=== PATIENT | male | born 1975 | race Caucasian/White ===

== ENCOUNTER 2023-08-21 14:35 | Observation (INO) | payer OTHER, SELFPAY ==
[2023-08-21] VITALS (18 sets, daily range): BP systolic 97–130; BP diastolic 59–87; PULSE 55–67; RESP 12–21; TEMP 36.8–37.2; O2SAT 93–100; BMI 33.4
--- NOTE | 2023-08-21 15:05 | ED.DIZZY1 ---
HPI - Dizziness General Chief Complaint: Dizziness Stated Complaint: DIZZINESS Time Seen by Provider: 08/21/23 14:42 Source: patient and family Mode of arrival: Wheelchair Limitations: no limitations History of Present Illness HPI Narrative: 47-year-old male presents to the emergency department with with complaint of dizziness. Onset at 8 PM last night. Describes as a feeling as though he were on a boat, moving, somewhat spinning. History of dizziness in the past for which she takes meclizine as needed. States, despite taking his meclizine the symptoms have persisted and feel somewhat worse. Has had associated nausea. Denies headache Quality:?spinning Severity:?moderate Timing:?as above, constant Context: Normal setting and activity? Modifying factors:?worse with changes in position Associated symptoms: nausea Related Data Home Medications Medication Instructions Recorded Confirmed meclizine 25 mg tablet 25 mg PO TID PRN dizziness 08/21/23 08/21/23 Previous Rx's Medication Instructions Recorded ciprofloxacin HCl 500 mg tablet 500 mg PO Q12H #20 tabs 08/22/23 (Cipro) meclizine 25 mg tablet 25 mg PO QID PRN dizziness #30 tabs 08/22/23 prednisone 10 mg tablet 50 mg (5 x 10 mg) PO DAILY #47 tabs 08/22/23 Allergies Allergy/AdvReac Type Severity Reaction Status Date / Time hydrocodone [From Vicodin] Allergy Severe Difficulty Verified 08/21/23 18:37 Breathing Iodinated Contrast Media Allergy Severe Anaphylaxis Verified 08/21/23 14:44 oxycodone [From Percocet] Allergy Severe Difficulty Verified 08/21/23 18:37 Breathing Review of Systems ROS Narrative CONST: Denies fever, chills HENT: Denies congestion, sore throat EYES: Denies eye redness, visual disturbance RESP: Denies cough, shortness of breath CV: Denies chest pain, palpitations GI: + nausea. Denies abd pain, vomiting : Denies dysuria, flank pain MS: Denies back pain, myalgias SKIN: Denies color change, rash NEURO: + dizziness. Denies facial asymmetry, headaches, light-headedness, numbness, seizures, syncope, tremors, weakness PSYCHIATRIC: Denies confusion, agitation PFSH [facility] Medical History (Updated 08/21/23 @ 18:38 by Yumiko Gar) CPAP (continuous positive airway pressure) dependence ?Z99.89 - Dependence on other enabling machines and devices (ICD-10) Family History (Updated 08/21/23 @ 18:39 by Yumiko Gar) Mother Family history of CHF (congestive heart failure) Family history of diabetes mellitus Family history of hypertension Father Family history of diabetes mellitus Social History (Updated 08/21/23 @ 18:40 by Yumiko Gar) Within the past year, how often did you have a drink containing alcohol: monthly or less Within the past year, how often did you have six or more drinks on one occasion: never Smoking status: Never smoker Non-prescribed substance use: denies use Previous occupational history: [employer] Highest level of school completed/degree received: high school graduate Little interest or pleasure in doing things: not at all Feeling down, depressed, or hopeless: not at all Exam Narrative Exam Narrative: Vital signs reviewed Nurses notes noted CONST: Nontoxic, well appearing, well nourished, in no distress.? No diaphoresis.?? HENT: normocephalic, atraumatic, moist mucous membrane, no abnormalities of the nose noted, hearing normal, no facial droop EYES: PERRL, EOMI.? Diffucult to assess nystagmus as when patient opens eyes, they are constantly moving in all directions. Normal appearing conjunctiva, no apparent discharge bilat NECK: normal appearance CV: normal rate, regular rhythm, no murmur RESP: normal effort, speaking in complete sentences. Lung sounds clear and equal bilat.? No wheezes, rales, rhonchi SKIN: no pallor NEURO: A&Ox 3, GCS = 15, no sensory, motor deficits.? CN normal as tested. NIH = 0.? Senior Quality Analyst, push, pull are strong and equal bilaterally. PSYCH: normal mood, affect.? Normal speech.? Memory intact Constitutional Vital Signs, click to edit/add: Last Vital Signs Temp 97.7 F 08/22/23 04:19 Pulse 93 H 08/22/23 09:59 Resp 18 08/22/23 04:19 BP 115/65 08/22/23 04:19 Pulse Ox 91 L 08/22/23 04:19 O2 Del Method Room Air 08/22/23 04:19 Course Reevaluation(s) Reevaluation #1: Nursing reports patient no better after treatment. New medications and CT ordered. Time: 16:34 Reevaluation #2: Dizziness still present. Patient agreeable with trying benzodiazepine. 1 mg of Ativan ordered. Time: 17:33 Reevaluation #3: Though somewhat improved, patient still feels very vertiginous, like I am on a boat, and feels as though if he were to be discharged to home, he would have to come right back. Discussed with patient and results, plan, and disposition. They are agreeable with plan. Time: 18:01 Consultations Consultation #1: Discussed with Dr. Stern who is agreeable with admission Time: 18:01 Vital Signs Vital signs: Vital Signs Temperature 98.9 F 08/21/23 14:40 Pulse Rate 67 08/21/23 14:40 Respiratory Rate 20 08/21/23 14:40 Blood Pressure 130/82 08/21/23 14:40 Pulse Oximetry 98 08/21/23 14:40 Oxygen Delivery Method Room Air 08/21/23 14:40 Temperature 97.7 F 08/22/23 04:19 Pulse Rate 93 H 08/22/23 09:59 Respiratory Rate 18 08/22/23 04:19 Blood Pressure 115/65 08/22/23 04:19 Pulse Oximetry 91 L 08/22/23 04:19 Oxygen Delivery Method Room Air 08/22/23 04:19 MDM - Dizziness MDM Narrative Medical decision making narrative: This is a pleasant 47-year-old male present to the emergency department with with complaint of dizziness. Onset around 8 PM last night. Chronic history of vertigo. Despite taking meclizine, not having improvement today. States dizziness worse than other incidences. On arrival, afebrile, vital signs stable. On exam nontoxic, well-appearing patient who appears somewhat uncomfortable. He is moving around randomly coinciding with the dizziness he is experiencing, but they external ocular movements are intact. Cranial nerves grossly intact. No focal weakness. Heart regular rate and rhythm. Lung sounds clear and equal bilaterally. Discussed with patient treatment options. Patient was hesitant to try Valium because he has a sensitivity to narcotic medicines. Initial course included IV fluids, meclizine, and Zofran. Reassessments noted as above. Labs revealed no leukocytosis, anemia, electrolyte imbalance, renal impairment. LFTs within normal limits. Urinalysis unremarkable. CT head imaging, per radiologist reveals no acute findings. Benign positional vertigo favored based on history and physical exam, past medical history of this. Central lesion less likely based on history and physical exam. CT scan did not show concerning findings. Despite multiple medication modalities, patient remained dizzy. Patient does not feel safe with going home. Plan: Patient will be admitted to the hospital for continued IV therapy, monitoring. Patient was discussed with his primary care provider who is agreeable with admission. Patient otherwise remained stable. Medical Records Attestation: I reviewed the patient's medical records. Lab Data Attestation: I reviewed the patient's lab results. Labs: Lab Results 08/21/23 08/21/23 Range/Units 15:16 17:34 WBC 7.2 (4.0-11.0) 10^3/uL RBC 4.90 (4.70-6.10) 10^6/uL Hgb 14.4 (14.0-18.0) g/dL Hct 44.5 (42.0-54.0) % MCV 90.8 (80.0-94.0) fL MCH 29.4 (25.9-34.0) pg MCHC 32.4 (29.9-35.2) g/dL RDW 12.6 (11.0-15.0) % Plt Count 224 (150-450) 10^3/uL MPV 9.7 (9.5-13.5) fL Neut % (Auto) 50.2 (43.0-75.0) % Lymph % (Auto) 35.9 (20.5-60.0) % [place] % (Auto) 9.1 (1.7-12.0) % Eos % (Auto) 3.9 (0.9-7.0) % Baso % (Auto) 0.8 (0.2-2.0) % Neut # (Auto) 3.6 (1.4-6.5) 10^3/uL Lymph # (Auto) 2.6 (1.2-3.8) 10^3/uL [place] # (Auto) 0.7 (0.3-0.8) 10^3/uL Eos # (Auto) 0.3 (0.0-0.7) 10^3/uL Baso # (Auto) 0.1 (0.0-0.1) 10^3/uL Abs Immat Gran (auto) 0.01 (0.00-0.03) 10^3/uL Imm/Tot Granulo (auto) 0.1 (0.0-0.5) % Sodium 141 (136-145) mmol/L Potassium 3.9 (3.5-5.1) mmol/L Chloride 105 (98-107) mmol/L Carbon Dioxide 27.7 (21.0-32.0) mmol/L Anion Gap 12.2 BUN 14.0 (7.0-18.0) mg/dL Creatinine 1.13 (0.70-1.30) mg/dL Est GFR ( Amer) >60 (>=60) Est GFR (Non-Af Amer) >60 (>=60) BUN/Creatinine Ratio 12.4 Glucose 89 (74-106) mg/dL Calcium 9.2 (8.5-10.1) mg/dL Total Bilirubin 0.9 (0.2-1.0) mg/dL AST 30 (15-37) U/L ALT 61 (16-63) U/L Alkaline Phosphatase 63 (46-116) U/L Total Protein 7.8 (6.4-8.2) g/dL Albumin 3.8 (3.4-5.0) g/dL Globulin 4.0 g/dL Albumin/Globulin Ratio 0.9 Urine Color Lt. yellow (YELLOW) Urine Clarity Clear (CLEAR) Urine pH 6.0 (5.0-9.0) Ur Specific [place] 1.010 (1.005-1.025) Urine Protein Negative (NEG/TRACE) mg/dL Urine Glucose (UA) Negative (NEGATIVE) mg/dL Urine Ketones Negative (NEGATIVE) mg/dL Urine Occult Blood Negative (NEGATIVE) Urine Nitrite Negative (NEGATIVE) Urine Bilirubin Negative (NEGATIVE) Urine Urobilinogen 0.2 (0.2-1.0) EU/dL Ur Leukocyte Esterase Negative (NEGATIVE) Imaging Data CT scan - head: Radiologist's impression: ITS Impressions Head CT 08/21/23 16:17 IMPRESSION: No acute intracranial abnormalities. Electronically authenticated by: YVONNE LEVY Date: 08/21/2023 17:00 ECG Data Attestation: I personally reviewed and interpreted this ECG as follows: (EKG performed at 1442 hrs. reveals sinus rhythm at 54 bpm. Normal axis. No ST elevation. No other acute changes noted) Discharge Plan Discharge Chief Complaint: Dizziness Clinical Impression: Vertigo Nausea & vomiting Qualifiers: Vomiting type: unspecified Qualified Code(s): R11.2 - Nausea with vomiting, unspecified Patient Disposition: Admitted as Observation Time of Disposition Decision: 18:00 Condition: Good Discharge Date/Time: 08/21/23 18:18
[2023-08-21] MEDS: MECLIZINE HCL 12.5 MG TABLET 50 MG PO (15:12)
[2023-08-21] MEDS: ONDANSETRON PF 4 MG/2 ML VIAL IV (15:12)
[2023-08-21] MEDS: 0.9 % SODIUM CHLORIDE 1,000 ML 999 ML IV (15:12)
[2023-08-21 15:30] LABS: Basophils Absolute Auto 0.1 10^3/uL (0.0-0.1); Basophils Percent Auto 0.8 % (0.2-2.0); Eosinophils Absolute Auto 0.3 10^3/uL (0.0-0.7); Eosinophils Percent Auto 3.9 % (0.9-7.0); Hematocrit 44.5 % (42.0-54.0); Hemoglobin 14.4 g/dL (14.0-18.0); Immature Granulocytes Abs Auto 0.01 10^3/uL (0.00-0.03); Immature Granulocytes Pct Auto 0.1 % (0.0-0.5); Lymphocytes Absolute Auto 2.6 10^3/uL (1.2-3.8); Lymphocytes Percent Auto 35.9 % (20.5-60.0); Mean Corpuscular HGB Conc 32.4 g/dL (29.9-35.2); Mean Corpuscular Hemoglobin 29.4 pg (25.9-34.0); Mean Corpuscular Volume 90.8 fL (80.0-94.0); Mean Platelet Volume 9.7 fL (9.5-13.5); Monocytes Absolute Auto 0.7 10^3/uL (0.3-0.8); Monocytes Percent Auto 9.1 % (1.7-12.0); Neutrophils Absolute Auto 3.6 10^3/uL (1.4-6.5); Neutrophils Percent Auto 50.2 % (43.0-75.0); Platelet Count 224 10^3/uL (150-450); Red Cell Distribution Width 12.6 % (11.0-15.0); White Blood Count 7.2 10^3/uL (4.0-11.0)
[2023-08-21 15:53] LABS: Alanine Aminotransferase 61 U/L (16-63); Albumin Globulin Ratio 0.9; Albumin Level 3.8 g/dL (3.4-5.0); Alkaline Phosphatase 63 U/L (46-116); Anion Gap 12.2; Aspartate Amino Transferase 30 U/L (15-37); BUN Creatinine Ratio 12.4; Bilirubin Total 0.9 mg/dL (0.2-1.0); Calcium 9.2 mg/dL (8.5-10.1); Carbon Dioxide 27.7 mmol/L (21.0-32.0); Chloride 105 mmol/L (98-107); Estimated GFR (African America >60 (>=60); Estimated GFR (Non-African Ame >60 (>=60); Glucose 89 mg/dL (74-106); Potassium 3.9 mmol/L (3.5-5.1); Sodium 141 mmol/L (136-145); Total Protein 7.8 g/dL (6.4-8.2)
--- NOTE | 2023-08-21 16:17 | CT_ITS ---
The [address] [address] Patient Name: ISABELLA BOWLING MRN: [id number] date: 1975 Sex: M Assigned Patient Location: ER Current Patient Location: ER Accession/Order Number: [id number] Exam Date: 08/21/2023 16:44 Report Date: 08/21/2023 17:00 At the request of: NIELS BOWSER Procedure: CT head/brain wo con EXAM: CT scan of the head without contrast. Dose reduction technique used: Automated exposure control and/or adjustment of the mA and/or kV according to patient size and/or use of iterative reconstruction technique. REASON FOR EXAM: dizziness COMPARISON: None FINDINGS: No intracranial hemorrhage, mass effect, midline shift, fractures or evidence of acute ischemic infarct. No hydrocephalus. Paranasal sinuses and mastoid air cells are clear. Normal variant prominent cisterna magna. Remainder unremarkable. CT/CT head/brain wo con IMPRESSION: No acute intracranial abnormalities. Electronically authenticated by: YVONNE LEVY Date: 08/21/2023 17:00
[2023-08-21] MEDS: DIPHENHYDRAMINE HCL 50 MG/ML (1ML) VIAL 25 MG IV (16:34)
[2023-08-21] MEDS: MECLIZINE HCL 12.5 MG TABLET 25 MG PO ×2 (16:34→21:55)
[2023-08-21] MEDS: METHYLPREDNISOLONE SOD SUCC PF 125 MG/2 ML VIAL IVP ×2 (16:34→21:54)
[2023-08-21] MEDS: LORAZEPAM 2 MG/ML 1 ML VIAL 1 MG IV (17:33)
[2023-08-21 17:51] LABS: Bilirubin Urine NEGATIVE (NEGATIVE); Blood Urine NEGATIVE (NEGATIVE); Clarity Urine CLEAR (CLEAR); Color Urine LT. YELLOW (YELLOW); Glucose Urine UA NEGATIVE (NEGATIVE); Ketones Urine NEGATIVE (NEGATIVE); Leukocyte Esterase Urine NEGATIVE (NEGATIVE); Nitrite Urine NEGATIVE (NEGATIVE); Protein Urine NEGATIVE (NEG/TRACE); Urine Microscopic Indicated NO; Urobilinogen Urine 0.2 EU/dL (0.2-1.0)
--- NOTE | 2023-08-21 18:44 | P.HP_ITS ---
H&P: HPI History of Present Illness Chief complaint: DIZZINESS VERTIGO Narrative: Patient had acute onset last night of increasing nausea vomiting and spinning sensation consistent with vertigo. In ER patient was given several different medications none of which should help to break his cycle. Soon as he opens his eyes he has horizontal nystagmus. With unable to break symptoms in ER patient will be admitted. Review of Systems ROS Status of ROS 10 or more systems reviewed and unremark able except as noted in history and below PFSH PFSH Medical History (Updated 08/21/23 @ 18:38 by Yumiko Gar) CPAP (continuous positive airway pressure) dependence ?Z99.89 - Dependence on other enabling machines and devices (ICD-10) Family History (Updated 08/21/23 @ 18:39 by Yumiko Gar) Mother Family history of CHF (congestive heart failure) Family history of diabetes mellitus Family history of hypertension Father Family history of diabetes mellitus Social History (Updated 08/21/23 @ 18:40 by Yumiko Gar) Within the past year, how often did you have a drink containing alcohol: monthly or less Within the past year, how often did you have six or more drinks on one occasion: never Smoking status: Never smoker Non-prescribed substance use: denies use Previous occupational history: the medical center Highest level of school completed/degree received: high school graduate Little interest or pleasure in doing things: not at all Feeling down, depressed, or hopeless: not at all Meds Home Medications and Allergies Home Medications Medication Instructions Recorded Confirmed Type meclizine 25 mg tablet 25 mg PO TID PRN dizziness 08/21/23 08/21/23 History Allergies Allergy/AdvReac Type Severity Reaction Status Date / Time hydrocodone [From Vicodin] Allergy Severe Difficulty Verified 08/21/23 18:37 Breathing Iodinated Contrast Media Allergy Severe Anaphylaxis Verified 08/21/23 14:44 oxycodone [From Percocet] Allergy Severe Difficulty Verified 08/21/23 18:37 Breathing Exam Constitutional Vital Signs, click to edit/add: Last Vital Signs Temp 98.9 F 08/21/23 14:40 Pulse 59 L 08/21/23 16:20 Resp 19 08/21/23 16:20 BP 122/60 08/21/23 16:01 Pulse Ox 94 L 08/21/23 16:20 O2 Del Method Room Air 08/21/23 14:40 [facility] Common normals: normocephalic and head/scalp atraumatic Eye Other: Positive nystagmus on bilateral conjugate gaze Lymph Lymphatic: no lymphadenopathy noted Chest Common normals: inspection of chest normal Respiratory Common normals: normal respiratory effort and no retractions Cardio Common normals: regular rate and regular rhythm GI Common normals: Normal to inspection, nondistended, normoactive bowel sounds present Neuro Common normals: oriented x3, CN's II-XII intact bilaterally and moves all extremities Results Labs Labs: Short CBC 08/21/23 Range/Units 15:16 WBC 7.2 (4.0-11.0) 10^3/uL Hgb 14.4 (14.0-18.0) g/dL Hct 44.5 (42.0-54.0) % Plt Count 224 (150-450) 10^3/uL BMP 08/21/23 15:16 Sodium 141 Potassium 3.9 Chloride 105 Carbon Dioxide 27.7 BUN 14.0 Creatinine 1.13 Glucose 89 Calcium 9.2 Liver Function 08/21/23 Range/Units 15:16 Total Bilirubin 0.9 (0.2-1.0) mg/dL AST 30 (15-37) U/L ALT 61 (16-63) U/L Alkaline Phosphatase 63 (46-116) U/L Albumin 3.8 (3.4-5.0) g/dL Urine 08/21/23 Range/Units 17:34 Urine Color Lt. yellow (YELLOW) Urine Clarity Clear (CLEAR) Urine pH 6.0 (5.0-9.0) Ur Specific [place] 1.010 (1.005-1.025) Urine Protein Negative (NEG/TRACE) mg/dL Urine Glucose (UA) Negative (NEGATIVE) mg/dL Assessment and Plan Assessment and Plan (1) Nausea & vomiting: Qualifiers: Vomiting type: unspecified Qualified Code(s): R11.2 - Nausea with vomiting, unspecified (2) Vertigo: Plan Mild tachycardia secondary to vertigo with unrelenting symptoms despite multiple medications given in ER, Benadryl, Ativan, Phenergan, steroids. With lack of improvement he will be admitted, given IV fluids, other IV medication to include Reglan. He can get 1 more dose of meclizine, start antibiotics. Vestibular therapy with physical therapy in a.m. This patient initially in observation status. Likely discharge in a..
--- NOTE | 2023-08-21 19:19 | ECG_ITS ---
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
[2023-08-21] MEDS: 0.9 % SODIUM CHLORIDE 1,000 ML 125 ML IV (21:54)
[2023-08-21] MEDS: CIPROFLOXACIN IN 5 % DEXTROSE 400 MG/200 ML PIGGYBACK 200 MG IV (21:54)
[2023-08-21] MEDS: METOCLOPRAMIDE HCL 10 MG/2 ML VIAL IVP (21:55)
[2023-08-22] VITALS (8 sets, daily range): BP systolic 115; BP diastolic 65; PULSE 63–93; RESP 18; TEMP 36.5; O2SAT 91–95
[2023-08-22] MEDS: METOCLOPRAMIDE HCL 10 MG/2 ML VIAL IVP ×2 (03:57→09:35)
[2023-08-22] MEDS: MECLIZINE HCL 12.5 MG TABLET 25 MG PO ×2 (03:57→09:35)
[2023-08-22] MEDS: METHYLPREDNISOLONE SOD SUCC PF 125 MG/2 ML VIAL IVP ×2 (03:57→09:35)
[2023-08-22 04:52] LABS: Basophils Percent Auto 0.1 % (0.2-2.0); Hematocrit 45.3 % (42.0-54.0); Hemoglobin 14.4 g/dL (14.0-18.0); Immature Granulocytes Abs Auto 0.04 10^3/uL (0.00-0.03); Immature Granulocytes Pct Auto 0.3 % (0.0-0.5); Lymphocytes Absolute Auto 0.6 10^3/uL (1.2-3.8); Lymphocytes Percent Auto 3.8 % (20.5-60.0); Mean Corpuscular HGB Conc 31.8 g/dL (29.9-35.2); Mean Corpuscular Hemoglobin 29.3 pg (25.9-34.0); Mean Corpuscular Volume 92.1 fL (80.0-94.0); Mean Platelet Volume 10.5 fL (9.5-13.5); Monocytes Absolute Auto 0.4 10^3/uL (0.3-0.8); Monocytes Percent Auto 2.6 % (1.7-12.0); Neutrophils Absolute Auto 14.8 10^3/uL (1.4-6.5); Neutrophils Percent Auto 93.2 % (43.0-75.0); Platelet Count 218 10^3/uL (150-450); Red Blood Count 4.92 10^6/uL (4.70-6.10); Red Cell Distribution Width 12.4 % (11.0-15.0); White Blood Count 15.9 10^3/uL (4.0-11.0)
[2023-08-22 04:56] LABS: Anion Gap 12.8; BUN Creatinine Ratio 18.9; Calcium 8.8 mg/dL (8.5-10.1); Carbon Dioxide 24.8 mmol/L (21.0-32.0); Chloride 107 mmol/L (98-107); Estimated GFR (African America >60 (>=60); Estimated GFR (Non-African Ame >60 (>=60); Glucose 141 mg/dL (74-106); Potassium 4.6 mmol/L (3.5-5.1); Sodium 140 mmol/L (136-145)
[2023-08-22 05:01] LABS: Erythrocyte Sedimentation Rate 9 mm/hr (<=15)
[2023-08-22] MEDS: 0.9 % SODIUM CHLORIDE 1,000 ML 125 ML IV (06:03)
[2023-08-22] MEDS: CIPROFLOXACIN IN 5 % DEXTROSE 400 MG/200 ML PIGGYBACK 200 MG IV (09:35)
--- NOTE | 2023-08-22 09:36 | P.DS_ITS ---
DS: Providers Provider Date of admission: 08/21/23 18:18 Primary care physician: Roland Stern MD Consults: 08/21/23 18:25 Physical Therapy Eval and Treat Routine Reason for consultation: Eval and Treat vestibular tx Has provider been notified: No DS: Diagnosis Discharge Diagnosis (1) Nausea & vomiting: Qualifiers: Vomiting type: unspecified Qualified Code(s): R11.2 - Nausea with vomiting, unspecified (2) Vertigo: Plan Steroid-induced hyperglycemia Steroid-induced leukocytosis DS: Summary Hospital Course Hospital Course: Patient was admitted with intractable vertigo. Given multiple medications in the emergency room without effectiveness. He was given steroids overnight time. This did seem to improve his vertigo. Still has some symptoms in the morning but was at least able to open his eyes. Physical therapy worked with patient, and conversation with his later in the day he felt much improved and was discharged home in improving condition. Medications see list. Follow-up with me in the office as needed. Time Spent with Patient Time attestation: Total time spent providing and/or coordinating discharge services: Exam Constitutional Vital Signs, click to edit/add: Last Vital Signs Temp 97.7 F 08/22/23 04:19 Pulse 69 08/22/23 07:53 Resp 18 08/22/23 04:19 BP 115/65 08/22/23 04:19 Pulse Ox 91 L 08/22/23 04:19 O2 Del Method Room Air 08/22/23 04:19 DS: Data Data Completed and Pending Labs on day of discharge: Labs from last 24 hours 08/22/23 08/21/23 08/21/23 04:05 17:34 15:16 WBC 15.9 H 7.2 RBC 4.92 4.90 Hgb 14.4 14.4 Hct 45.3 44.5 MCV 92.1 90.8 MCH 29.3 29.4 MCHC 31.8 32.4 RDW 12.4 12.6 Plt Count 218 224 MPV 10.5 9.7 Neut % (Auto) 93.2 H 50.2 Lymph % (Auto) 3.8 L 35.9 [place] % (Auto) 2.6 9.1 Eos % (Auto) 0.0 L 3.9 Baso % (Auto) 0.1 L 0.8 Neut # (Auto) 14.8 H 3.6 Lymph # (Auto) 0.6 L 2.6 [place] # (Auto) 0.4 0.7 Eos # (Auto) 0.0 0.3 Baso # (Auto) 0.0 0.1 Abs Immat Gran (auto) 0.04 H 0.01 Imm/Tot Granulo (auto) 0.3 0.1 ESR 9 Sodium 140 141 Potassium 4.6 3.9 Chloride 107 105 Carbon Dioxide 24.8 27.7 Anion Gap 12.8 12.2 BUN 21.0 H 14.0 Creatinine 1.11 1.13 Est GFR ( Amer) >60 >60 Est GFR (Non-Af Amer) >60 >60 BUN/Creatinine Ratio 18.9 12.4 Glucose 141 H 89 Calcium 8.8 9.2 Total Bilirubin 0.9 AST 30 ALT 61 Alkaline Phosphatase 63 Total Protein 7.8 Albumin 3.8 Globulin 4.0 Albumin/Globulin Ratio 0.9 Urine Color Lt. yellow Urine Clarity Clear Urine pH 6.0 Ur Specific [place] 1.010 Urine Protein Negative Urine Glucose (UA) Negative Urine Ketones Negative Urine Occult Blood Negative Urine Nitrite Negative Urine Bilirubin Negative Urine Urobilinogen 0.2 Ur Leukocyte Esterase Negative Discharge Plan Discharge Disposition: Home, Self-Care Condition: Good Discharge Medications: New prednisone 10 mg tablet 50 mg PO DAILY Qty: 47 0RF Rx Instructions: 5/day for 3 days. 4/day for 3 days, 3/day for 3 days, 2/day for 3 days, 1/day for 3 days, 1/2 /day for 4 days ciprofloxacin HCl [Cipro] 500 mg tablet 500 mg PO Q12H Qty: 20 0RF meclizine 25 mg tablet 25 mg PO QID PRN (Reason: dizziness) Qty: 30 0RF Continued meclizine 25 mg tablet 25 mg PO TID PRN (Reason: dizziness) Patient Instructions: Ciprofloxacin (By mouth), Prednisone (By mouth), Mecli zine (By mouth), Dizziness (GEN) Forms: Portal Instructions Follow Up Appointments: @ 9am with Dr. Stern [phone] Discharge Date/Time: 08/22/23 13:46
--- NOTE | 2023-08-22 09:45 | CM.NOTE ---
Rounds made with Dr. Stern. Potential plan for discharge today. Would like Mr. Mcintyre to work with P.T. for the vertigo before discharge. Mr. Mcintyre in agreement.
--- NOTE | 2023-08-26 15:01 | CM.DCFOLLOWU ---
1st attempt discharge follow up call made by Karli Mason on 08/26/23, no answer
== END 2023-08-22 13:46 | disposition home or self-care (01) ==
LOC: ER 18:01 → MS 18:20
PROVIDERS: Physician Assistant; Admitting Provider Family Medicine; Emergency Provider Emergency Medicine; PCP Family Medicine; Visit Provider Family Medicine
DX: R42 Dizziness and giddiness (principal); R11.2 Nausea with vomiting, unspecified; R00.0 Tachycardia, unspecified; D72.829 Elevated white blood cell count, unspecified; R73.9 Hyperglycemia, unspecified; T38.0X5A Adverse effect of glucocorticoids and synthetic analogues, initial encounter; Z79.899 Other long term (current) drug therapy
CPT/HCPCS: 36415; 70450; 80048; 80053; 81003; 85025; 85652; 93005; 94761; 96361; 96365; 96366; 96375; 96376; 97112; 97161; 99285; G0378; J0744; J1200; J2060; J2405; J2765; J2930

== ENCOUNTER 2023-12-28 09:53 | Outpatient (OUT) | payer OTHER, SELFPAY ==
--- OUTSIDE RECORDS SUMMARY | 2023-12-28 09:58 | XMS_ITS ---
Patient Summarization (C-CDA 2.1 CCD) Created on: December 28, 2023 JOSE F MCINTYRE : 1975 Sex: Male Author Organization Sample organization Care Team Providers Care Solid Waste Disposal Manager Name Role Phone EDYTAY ., DR FORRESTER Admitting Unavailable HOY ., DR FORRESTER Attending Unavailable HOY ., DR FORRESTER Primary Care Unavailable HOY ., DR FORRESTER Consulting Unavailable HOY ., DR FORRESTER Admitting Unavailable HOY ., DR FORRESTER Attending Unavailable HOY ., DR FORRESTER Primary Care Unavailable HOY ., DR FORRESTER Admitting Unavailable HOY ., DR FORRESTER Attending Unavailable HOY ., DR FORRESTER Primary Care Unavailable HOY ., DR FORRESTER Consulting Unavailable HOY ., DR FORRESTER Admitting Unavailable HOY ., DR FORRESTER Attending Unavailable HOY ., DR FORRESTER Primary Care Unavailable HOY ., DR FORRESTER Consulting Unavailable Unavailable Primary Care Provider Unavailabl e Unavailable Primary Care Provider Unavailabl e [facility] Attending Unavailable BASSIM, LARISSA Referring Unavailable BASSIM, LARISSA Attending Unavailable LISA LI Attending Unavailable BASSIM, LARISSA Referring Unavailable BASSIM, LARISSA Referring Unavailable BASSIM, LARISSA Attending Unavailable BASSIM, LARISSA Referring Unavailable BASSIM, LARISSA Referring Unavailable RADHA CHAMBERS Attending Unavailable Allergies Allergy Classification Reported Allergen(s) Allergy Type Date of Onset Reaction(s) Facility (2 sources) Acetaminophen / HYDROcodone Drug Allergy [facility] (8 sources) Acetaminophen / HYDROcodone; Translations: [HYDROCODONE-ACET AMINOPHEN] Drug Allergy 4 Intolerance [facility] (8 sources) Ciprofloxacin; Translations: [CIPROFLOXACIN] Drug Allergy 4 Other: See Comments [facility] (8 sources) predniSONE; Translations: [PREDNISONE] Drug Allergy 4 Other: See Comments [facility] Encounters Encounter Date Encounter Type Care Provider Facility Start: 12-20-2023 End: 12-20-2023 ambulatory CHRISTINA NGO Facility:[facility] Start: 12-02-2023 End: 12-02-2023 ambulatory LARISSA GALAVIZ Facility:[facility] Start: 12-02-2023 End: 12-02-2023 Office outpatient visit 15 minutes Larissa Galaviz MD Work Phone: Otolaryngology Comment on above: Dizziness (Primary D x); Vestibular migraine Start: 12-02-2023 End: 12-02-2023 Subsequent hospital visit by physician Jose Rafael Eaton Ca (1.5t) Work Phone: Radiology Comment on above: Vertigo [R42] Start: 12-02-2023 End: 12-02-2023 ambulatory LARISSA GALAVIZ Facility:[facility] Start: 12-02-2023 End: 12-02-2023 Patient encounter procedure Radha Chambers PhD Work Phone: Audiology Comment on above: Vertigo (Primary Dx) ; Photophobia Tinnitus, bilateral (Primary Dx); Vertigo Start: 09-30-2023 Telephone encounter Larissa whitley MD Work Phone: [facility] Comment on above: Patient Update Start: 09-26-2023 End: 09-26-2023 Office outpatient new 45 minutes Larissa Galaviz MD Work Phone: Otolaryngology Comment on above: Vertigo (Primary Dx) Start: 09-26-2023 End: 09-26-2023 ambulatory LARISSA GALAVIZ Facility:[facility] Start: 09-26-2023 End: 09-26-2023 Patient encounter procedure Lisaterrance MONTOYA Work Phone: Audiology Comment on above: Dizziness (Primary D x); Tinnitus, bilateral Start: 08-26-2023 Transcribe Orders Larissa Galaviz MD Work Phone: [facility] Comment on above: Other specified hear ing loss, unspecified ear (Primary Dx) Start: 10-31-2022 End: 11-01-[address] USAMA STERN . Facility:[facility] Start: 10-15-2022 End: 10-16-[address] USAMA STERN . Facility:[facility] Start: 10-12-[address] USAMA STERN . Facili ty:[facility] Start: 04-17-2022 End: 04-18-[address] USAMA STERN . Facility:[facility] Immunizations Immunization Date Immunization Notes Care Provider Omega marshall 05-06-2009 influenza virus vacc ine, unspecified formulation Larissa Galaviz MD Work Phone: [facility] Medications Current Medications Medication Drug Class(es) Dates Sig (Normalized) Sig (Original) cyproheptadine hydrochloride 4 mg oral tablet (7 sources) Start: 09-05-2023 take 1 tablet by mouth every twelve hours cyproheptadine (PERIACTIN) 4 mg tablet Take 1 tablet by mouth every 12 hours. 0 09/05/2023 Active Comment on above: Take 1 tablet by compa th every 12 hours. 24 hr desvenlafaxine succinate 50 mg extended release oral tablet (7 sources) Serotonin and Norepinephrine Reuptake Inhibitor Start: 09-01-2023 take 1 tablet by mouth once desvenlafaxine ER (PRISTIQ) 50 mg 24 hr tablet Take 1 tablet by mouth every afternoon. 0 09/01/2023 Active Comment on above: Take 1 tablet by compa th every afternoon. diazePAM 5 mg oral tablet (2 sources) Benzodiazepine Start: 09-26-2023 End: 10-26-2023 take 1 tablet by mouth every 30 days as needed diazePAM (VALIUM) 5 mg tablet Indications: Vertigo Take 1 tablet by mouth as needed (vertigo) for up to 30 days. 10 tablet 0 09/26/2023 10/26/2023 Active Comment on above: Take 1 tablet by compa th as needed (vertigo) for up to 30 days. iv contrast (will be provided with radiology test) (6 sources) Start: 09-26-2023 inject 1 dose intravenously once iv contrast (will be provided with radiology test) Indications: Vertigo MRI Brain Inject, intravenously, once for 1 dose.No IV access, insert saline lock prior to beginning of sedation, infusion, injection of imaging exam.Discontinue saline lock post exam. If Pt. has a central line or IVAD, may access for administration according to line specific nursing protocol.Once exam is complete flush line and de-access according to line specific nursing protocol in the MR contrast administration guidelines link 1 Each 0 09/26/2023 Active Comment on above: MRI Brain Inject, in travenously, once for 1 dose.No IV access, insert saline lock prior to beginning of sedation, infusion, injection of imaging exam.Discontinue saline lock post exam. If Pt. has a central line or IVAD, may access for administration according to line specific nursing protocol.Once exam is complete flush line and de-access according to line specific nursing protocol in the MR contrast administration guidelines link 24 hr loratadine 10 mg / pseudoephedrine sulfate 240 mg extended release oral tablet (1 source) alpha-Adrenergic Agonist take 1 tablet by mouth once daily loratadine-pseudoe phedrine ER (CLARITIN-D 24 HOUR) 10-240 mg Tb24 Take 1 tablet by mouth once daily. 0 Active magnesium oxide 400 mg oral capsule (1 source) Start: 12-02-2023 End: 03-01-2024 take 1 capsule by mouth once daily magnesium oxide 400 mg magnesium cap Indications: Vestibular migraine Take 1 capsule by mouth once daily. 30 capsule 2 12/02/2023 03/01/2024 Active meclizine hydrochloride 25 mg oral tablet (8 sources) Antiemetic Start: 09-05-2023 End: 09-26-2023 take 1 tablet by mouth every six hours as needed meclizine (ANTIVERT) 25 mg tab Take 25 mg by mouth four times a day as needed. 0 09/05/2023 Active Comment on above: Take 25 mg by mouth four times a day as needed. 1 tablet as needed O rally QID verapamil hydrochloride 80 mg oral tablet (1 source) Calcium Channel Josefina Start: 12-02-2023 End: 01-08-2024 take 1 tablet by mouth once daily, then take 1 tablet by mouth twice daily verapamil 80 mg tablet Indications: Vestibular migraine Take 1 tablet by mouth once daily for 7 days, THEN 1 tablet two times a day. 67 tablet 1 12/02/2023 01/08/2024 Active Payers Date Payer Category Payer Unknown MMO M[employer] PPO [id number] 2023-Present [phone] [address] [place] [address] PPO [id number] 1975 Unknown [id number] 1975 Unknown [id number] 1975 Unknown [id number] 1975 Unknown [id number] 1957 Self-pay [id number] 1957 Unknown [id number] Plan of Treatment Date Care Activity Detail Author Start: 03-15-2024 Influenza vaccination Influenz a Vaccine (Season Ended) [facility] Start: 02-03-2024 End: 02-03-2024 Patient encounter procedure 02/03/2024 4:30 PM EDT Office Visit Otolaryngology [address] [id number] Larissa Galaviz MD [address] [place] [id number] test follow up Otolaryngology Comment on above: test follow up Start: 12-02-2023 End: 03-02-2024 Cobalamin (Vitamin B12) [Mass/volume] in Serum or Plasma VITAMIN B12 Lab Routine Dizziness Expected: 12/02/2023, Expires: 03/02/2024 [facility] Comment on above: Expected: 12/02/2023 , Expires: 03/02/2024 Start: 12-02-2023 End: 03-02-2024 Iron and Iron binding capacity panel - Serum or Plasma IRON AND TIBC Lab Routine Dizziness Expected: 12/02/2023, Expires: 03/02/2024 [facility] Comment on above: Expected: 12/02/2023 , Expires: 03/02/2024 Start: 12-02-2023 End: 03-02-2024 Pyridoxine [Mass/volume] in Serum or Plasma VITAMIN B6/PYRIDOXIN Lab Routine Dizziness Expected: 12/02/2023, Expires: 03/02/2024 [facility] Work Phone: Comment on above: Expected: 12/02/2023 , Expires: 03/02/2024 Start: 07-15-2023 Behavioral Health Screening Behavioral Health Screening [facility] Start: 07-15-2023 Depression Assessment Depression Ass essment [facility] Start: 03-15-2023 Covid-19 Vaccine ( season) Covid-19 Vaccine () [facility] Start: 03-15-2023 Influenza vaccination Influenza Vacc ine (#1) [facility] Start: 2022 Diabetes Screening Diabetes Screenin g [facility] Start: 2022 Screening for malignant neoplasm of colon [facility] Start: 2012 Lipid panel Lipid Screening [facility] Start: 1996 Hepatitis B Vaccine (1 of 3 - 19+ 3-dose series) Hepatitis B Vaccine (1 of 3 - 19+ 3-dose series) [facility] Start: 1996 Urine microalbumin profile DTaP,Tdap,Td Vaccine (1 - Tdap) [facility] Start: 12-05-1995 Hepatitis C screening Hepatitis C Sc reening [facility] Start: 12-05-1995 HIV screening HIV Screening [facility] Start: 06-06-1978 Covid-19 Vaccine (#1) Covid-19 Vacci ne (#1) [facility] Start: 1975 Hepatitis B Vaccine (1 of 3 - 3-dose series) Hepatitis B Vaccine (1 of 3 - 3-dose series) [facility] End: 09-26-2024 ECOCHG (ELECTROCOCHLEOGRAPHY) ECOCHG (ELECTROCOCHLEOGRAPHY) Audiology Routine Vertigo 1 Occurrences starting 09/26/2023 until 09/26/2024 [facility] Work Phone: Comment on above: 1 Occurrences starti ng 09/26/2023 until 09/26/2024 End: 08-26-2024 HEARING TEST/AUDIOGRAM HEARING TEST/AUDIOGRAM Audiology Routine Other specified hearing loss, unspecified ear 1 Occurrences starting 08/26/2023 until 08/26/2024 [facility] Work Phone: Comment on above: 1 Occurrences starti ng 08/26/2023 until 08/26/2024 End: 10-25-2024 MR Brain WO and W contrast IV MRI BRAIN WO/W IVCON Radiology Routine Vertigo 1 Occurrences starting 09/26/2023 until 10/25/2024 [facility] Work Phone: Comment on above: 1 Occurrences starti ng 09/26/2023 until 10/25/2024 End: 09-26-2024 VESTIBULAR TEST BATTERY VESTIBULAR TEST BATTERY Audiology Routine Vertigo 1 Occurrences starting 09/26/2023 until 09/26/2024 [facility] Work Phone: Comment on above: 1 Occurrences starti ng 09/26/2023 until 09/26/2024 [facility] Problems Active Problems Problem Classification Problem Date Documented Da te Episodic/Chronic Blindness and vision defects (1 source) Photophobia; Translations: [Visual discomfort, unspecified] 12-02-2023 Episodic Conditions associated with dizziness or vertigo (8 sources) Vertigo; Translations: [Dizziness and giddiness] Onset: 12-02-2023 09-26-2023 Episodic Headache; including migraine (1 source) Migraine variants; Translations: [Other migraine, not intractable, without status migrainosus] 12-02-2023 Chronic Other ear and sense organ disorders (1 source) Hearing loss; Translations: [Other specified hearing loss, unspecified ear] 08-26-2023 Chronic Other ear and sense organ disorders (1 source) Other specified hearing loss, unspecified ear; Translations: [Other specified hearing loss, unspecified ear] Onset: 09-26-2023 Chronic Other ear and sense organ disorders (2 sources) Bilateral tinnitus; Translations: [Tinnitus, bilateral] 10-25-2023 Episodic Residual codes; unclassified (4 sources) Obstructive sleep apnea (adult) (pediatric); Translations: [OBSTRUCTIVE SLEEP APNEA] Onset: 10-31-2022 Chronic Past or Other Problems Problem Classification Problem Date Documented Da te Episodic/Chronic Urinary tract infections (4 sources) Urinary tract infection, site not specified; Translations: [UTI SITE NOT SPECIFIED] Onset: 04-17-2022 Episodic Procedures Date Procedure Procedure Detail Performing Clinician Start: 12-02-2023 Mri brain brain stem w/o w/contrast material Bal Cole MD Work Phone: Start: 09-26-2023 HEARING TEST/AUDIOGRAM Larissa Galaviz MD Work Phone: Results Test Name Value Interpretation Reference Range Facility Iron and Iron binding capaci ty panelon 12-20-2023 Iron [Mass/Vol] 112 ug/dL Normal 41-186 [facility] Comment on above: Order Comment: Speci men Type: BLOOD SPECIMENOrdering Facility: [facility] Address: [address] [place] [address] Performed By: #### 5 0190-8, 2132-03 ####[facility] LABIA [id number] [place] [address] [place] Iron binding capacity [Mass/Vol] 307 ug/dL Normal 232-386 [facility] Comment on above: Order Comment: Speci men Type: BLOOD SPECIMENOrdering Facility: [facility] Address: [address] [place] [address] Performed By: #### 5 0190-8, 2132-03 ####[facility] [id number] [place] [address] [place] Iron/TIBC [Molar ratio] 36.5 % Normal 15.0-57.0 [facility] Comment on above: Order Comment: Speci men Type: BLOOD SPECIMENOrdering Facility: [facility] Address: [address] [place] [address] Performed By: #### 5 0190-8, 2132-03 ####[facility] LABIA [id number] [address] [id number] [place] VITAMIN B6/PYRIDOXINon 12-19 VITAMIN B6 108.6 nmol/L Normal 20.0-125.0 [facility] Comment on above: Order Comment: Speci men Type: BLOOD SPECIMENOrdering Facility: [facility] Address: [address] [place] [address] Result Comment: INTE RPRETIVE INFORMATION: Vitamin B6 (Pyridoxal 5-Phosphate) Pyridoxal 5'-phosphate measured in a specimen collected following an 8-hour or overnight fast accurately indicates vitamin B6 nutritional status. Non-fasting specimen concentration reflects recent vitamin intake. This test was developed and its performance characteristics determined by [facility]. It has not been cleared or approved by the [place] Food and Drug Administration. This test was performed in a CLIA certified laboratory and is intended for clinical purposes. Performed By: [facility] [address] [place] [address] End Frazer: Tushar Saha MD, PhD CLIA Number: [id number] Performed By: #### V ITB6 ####[facility] [id number] [place] [address] Vit B12 [facility] 024 Cobalamin (Vitamin B12) [Mass/Vol] 645 pg/mL Normal 232-1245 [facility] Comment on above: Order Comment: Speci men Type: BLOOD SPECIMENOrdering Facility: [facility] Address: [address] [place] [address] Performed By: #### 5 0190-8, 2132-9 ####[facility] LABCLIA [id number] [address] OF [facility] CNOVon 12-02-2023 CNOV Office Visit (CDISMN ) ----- JOSE F MCINTYRE ([id number]) 1975 M Date Time Provider Department 12/02/23 8:00 AM [facility] During your visit today, we recorded the following information about you: Christina Ngo AUD 12/02/2023 1:41 PM Signed [facility] Electrocochleography (EcochG) Name: Jose F Mcintyre [facility]#: [id number] Date of Service: 12/02/2023 Date of : 1975 Age: [age] year old Referred by: Larissa Galaviz MD [address] [address] Referred for: Evaluation to detect elevated inner ear pressure. Referral documented: In an order in [facility] Impressions and Recommendations OVERALL IMPRESSIONS: Normal electrocochleography (EcochG) examination in both ears. There is no electrophysiologic evidence of increased labyrinthine pressure in either ear. RECOMMENDATIONS: * Continue medical follow-up with Larissa Galaviz MD as scheduled today. * Continue with Vestibular Test Battery with Radha Chambers, PhD as scheduled today. * Re-evaluation as medically indicated. Note: The results and recommendations were explained to Jose F Mcintyre expressed understanding of the information. Electrocochleography (EcochG) Results SUMMARY OF PAST MEDICAL HISTORY: Encounter with Larissa Galaviz MD, on 09/26/23 Reported vertigo episodes that started in 2006 with a tingling sensation in the ears followed by a cold sweat and flushing sensation, with room spinning vertigo. These episodes would last from hours to days. He reported a high-pitched tinnitus as well as a low pitched pulsatile whooshing sound, left ear greater. He has been treated in the past using meclizine and steroids, both oral and intramuscular. Recommended imaging, vestibular test battery, and electrocochleography testing. Encounter with Gildardo Kendall on 09/26/23 Seen for initial audiologic evaluation due to complaints of recurrent episodes of vertigo lasting several hours, left pulsatile tinnitus in addition to constant ringing tinnitus bilaterally. HISTORY OF PRESENT ILLNESS - DIRECT PATIENT INTERVIEW Chief Complaint: Jose F Mcintyre is a 47 year old male who presents with episodic dizziness described as though the room is spinning. Symptoms initially began in 2006. He reported that the number of episodes he experiences can vary and stated he had about 4-5 episodes within the last year. Episodes last for hours up to 2 days in duration and are spontaneous in nature. Mr. Mcintyre reported that his body will give him a 'warning' when an episode is about to occur, as he will feel tingling in his ears and get clammy. He denied any changes in hearing or tinnitus during the episodes, but he does have tinnitus at baseline. Additionally, he will experience occasional pulsatile tinnitus in both ears that precede dizziness, photophobia, and sensation of his eyelids fluttering. He denied history of headaches/migraines. He has been treated by his local physicans with oral and intramuscular steroid injections and meclizine as needed. Of note, Mr. Mcintyre reported he previously attended vestibular PT in 2008 without relief. Previous audiometric testing completed on 09/26/2023 indicated hearing sensitivity within normal limits in both ears. OBJECTIVE CLINICAL ASSESSMENT RESULTS Otoscopic Examination: Right ear: Ear canal clear, Eardrum visible, Landmarks noted Left ear: Ear canal clear, Eardrum visible, Landmarks noted Tympanometry: Description of procedure: This test is an objective evaluation of middle ear function. CPT code: 61041 Right ear: Normal middle ear pressure and mobility. Left ear: Normal middle ear pressure and mobility. Right Left Canal Volume (ml) 2.1 2.01 Peak Pressure (daPa) -7 -51 Peak Amplitude (ml) 0.59 0.37 Tympanogram Width (daPa) 54 26 EcochG: The EcochG is an auditory evoked potential method for recording electrical potentials of the cochlea to detect elevated inner ear pressure. Electrodes are placed on the forehead (vertex-nontest mastoid; ground-low forehead) and, using a tymptrode, on the test eardrum. The summating potential (SP) and the action potential (AP) are identified. The SP/AP ratio is calculated and reported as within normal limits (<0.35) or abnormal (>0.35) suggesting evidence of increased labyrinthine pressure. An RadioFrame Evoked Potential unit was used to obtain EcochG responses. Procedure time: 30-40 minutes. CPT code: 32150. RIGHT EAR SP Amplitude AP Amplitude SP/AP ratio Status GRAND AVERAGE 0.199 uV 0.752 uV 0.264 Normal Tracing 1 0.159 uV 0.499 uV 0.319 Normal Tracing 2 0.195 uV 0.814 uV 0.239 Normal Tracing 3 0.270 uV 1.006 uV 0.268 Normal LEFT EAR SP Amplitude AP Amplitude SP/AP ratio Status GRAND AVERAGE 0.161 uV 0.738 uV 0.218 Normal Tracing 1 0.202 uV 0.654 uV 0.310 Normal Tracing 2 0.259 uV 0. (more content not included)... Normal [facility] Office Visit (CDISMN ) ----- JOSE F MCINTYRE ([id number]) 1975 M Date Time Provider Department 12/02/23 10:00 AM RADHA CHAMBERS During your visit today, we recorded the following information about you: Radha Chambers, PhD 12/02/2023 11:43 AM Signed [facility] Section of Audiology Vestibular Test Battery Report Name: Jose F Mcintyre [facility]#: [id number] Date of Service: 12/02/2023 Date of : 1975 Age: [age] year old Referred by: Larissa Galaviz [address] [place] [address] And is a patient of No primary care provider on file. Referred for: Evaluation of the cause of disorder of hearing, tinnitus, or balance. Referral documented: In an order in [employer] [facility] Instructions: All pretest instructions were completed prior to testing: no alcohol, no medication for dizziness/motion sickness, no sedatives (sleep aids, tranquilizers, antihistamines), no eye makeup and only have a light meal prior to testing. Impressions and Recommendations OVERALL IMPRESSIONS: Normal vestibular evaluation. Symmetrical and robust peripheral vestibular responses and normal central vestibular function. Low likelihood of active vestibular system involvement to account for symptoms described below. While today's findings indicate normal vestibular function, cannot rule out possible central source (migraine variant?) as potential sources or contributors to symptoms. Clinical correlation needed. Note, Jose F reported significant symptoms during rotational chair testing and monothermal caloric irrigation responses even with reduced time and cool temperature. These symptoms may occur with higher incidence and intensity in patients with migraine variants (Vitor et al., 202). The remainder of today's evaluation revealed the following: - Normal low, mid, and high frequency vestibulo-ocular reflex (VOR) function as evident by robust and symmetrical monothermal caloric responses, rotary chair , and video head impulse testing. - Ocular and cervical vestibular evoked myogenic potentials (VEMP) results are not consistent with superior semi-circular canal dehiscence (SSCD), otolith, vestibular nerve, and VEMP pathway involvement in both ears. - There were no clinically significant signs of pathophysiologic nystagmus provoked during gaze stability testing with fixation removed, post-headshake testing, positional testing, and mastoid vibration testing. - There were no subjective or objective indications of Benign Paroxysmal Positional Vertigo (BPPV). - There were no indications of central vestibulo-ocular pathway involvement noted. Normal oculomotor examination. - Normal observation of gait and transfers. - Postural control findings demonstrate normal functional balance with varying sensory information (vestibular, visual and/or somatosensory) observed during the Modified Clinical Test of Sensory Integration on Balance (mCTSIB). No fall reactions observed during eyes open and eyes closed conditions on firm and foam support surfaces. RECOMMENDATIONS: - Continue medical follow up with aLrissa Galaviz MD and No primary care provider on file. - Consider re-evaluation as medically indicated. - Consider maintaining a healthy sleep schedule in addition to diet, hydration, and exercise. The results and recommendations were explained to Jose F Mcintyre and he expressed understanding of the information. History Present Illness The following history was obtained by way of Jose F Mcintyre's previous medical record, patient entered questionnaire, and direct patient interview: Jose F Mcintyre presents with vertigo described as true spinning sensation. He will have 5 minutes of clammy sensation and then prickly feeling behind his ears (both ears) and vertigo start, which last for hours in duration. Since symptoms started in 2006 he has had intermittent episodes, but this past year has had 5-6. Symptoms may be triggered with stress. No history of headaches or migraines but he does have photo/phonophobia. He needs to sleep off his symptoms (dark room, fan, Meclizine). Please refer to summary of past medical history section for further details of presenting symptoms, signs and relevant past medical history. Symptom Ratin/10 today (0 = no symptoms, 10 = severe symptoms). SUMMARY OF PAST MEDICAL HISTORY: - He has no past medical history on file. - Referring provider Larissa Galaviz MD: vertigo since 2006. Tingling sensations in ears followed by cold sweat and flushing sensation then room spinning. Hours to days in duration; photo/phonophobia. Denies headaches/migraines. Left sided tinnitus - past VTB but unable to complete calorics due to vertigo - Normal EcochG obtained on this date. - Summary of relevant imaging (directly adapted from report): MRI ordered - Previous aud (more content not included)... Normal [facility] CNOV Office Visit (OTOLMN ) ----- JOSE F MCINTYRE ([id number]) 1975 M Date Time Provider Department 12/02/23 4:30 PM LARISSA GALAVIZ OTOLMN During your visit today, we recorded the following information about you: Larissa Galaviz MD 12/02/2023 6:34 PM Signed SECTION OF OTOLOGY, NEUROTOLOGY AND LATERAL SKULL BASE SURGERY Department of Otolaryngology - Head and Neck Surgery [facility] [place], [facility] History Mr. JOSE F MCINTYRE is a 47 year old male returning for follow-up of his dizziness He recently had a steroid injection 3 weeks ago Test Results Vestibular testing Normal vestibular evaluation. Symmetrical and robust peripheral vestibular responses and normal central vestibular function. Low likelihood of active vestibular system involvement to account for symptoms described below. While today's findings indicate normal vestibular function, cannot rule out possible central source (migraine variant?) as potential sources or contributors to symptoms. Clinical correlation needed. Note, Jose F reported significant symptoms during rotational chair testing and monothermal caloric irrigation responses even with reduced time and cool temperature. These symptoms may occur with higher incidence and intensity in patients with migraine variants (Vitor et al., 2020). Imaging (personally reviewed) No convincing intracranial mass or abnormal enhancement, specifically in the bilateral internal auditory canals. No acute intracranial process. Assessment and Plan Jose F Mcintyre's history, physical examination, and diagnostic studies are consistent with the following diagnoses and associated treatment plan of care. Dizziness - VITAMIN B6/PYRIDOXIN; Future - VITAMIN B12; Future - IRON AND TIBC; Future Vestibular migraine - magnesium oxide 400 mg magnesium cap; Take 1 capsule by mouth once daily. - verapamil 80 mg tablet; Take 1 tablet by mouth once daily for 7 days, THEN 1 tablet two times a day. Other orders - loratadine-pseudoephedrin e ER (CLARITIN-D 24 HOUR) 10-240 mg Tb24; Take 1 tablet by mouth once daily. We discussed that based on the above findings, his dizziness is likely secondary to vestibular migraine. We will therefore start therapy with verapamil, ramping up to 80mg BID. We also discussed lifestyle changes. I will see him back in 2 months I have answered all of his questions. Signed by: Larissa Galaviz MD, FACS Section Head, Otology-Neurotology Awning Hanger Supervisor, Hearing Implant Program [facility] [place] [facility] [place] Medical Decision Making: Problems: Low: Stable chronic illness Data: Unique test result(s) reviewed: 2 Risk: Moderate: Moderate risk from testing/treatment Medical Decision Making Level: 3 - Low Referring Provider: LARISSA GALAVIZ [[id number]] Allergies As of Date: 12/02/2023 Noted Allergy Reaction CIPROFLOXACIN 09/26/2023 14 - Other: See Comments Comments: Cold sweets, dizziness PREDNISONE 09/26/2023 14 - Other: See Comments Comments: Numbness, tingling-fingers, anxiety VICODIN (HYDROCODONE-ACETAMINOPHE *09/26/2023 5 - Intolerance Comments: Dizziness, sweats, numbness in legs Date Reviewed: 12/02/2023 Reviewed by: Livan Thomas RN - Fully Assessed Reason for Visit: Follow Up [171] Primary Visit Diagnosis:Dizziness [R42] Other Visit Diagnosis:Vestibular migraine [G43.809] Order(s):VITAMIN B6/PYRIDOXIN [SQVITB6] Order #: [id number] FUTURE VITAMIN B12 [SQB12] Order #: [id number] FUTURE magnesium oxide 400 mg magnesium capTake 1 capsule by mouth once daily.Disp: 30 capsuleRfl: 2 IRON AND TIBC [SQIRON] Order #: [id number] FUTURE verapamil 80 mg tabletTake 1 tablet by mouth once daily for 7 days, THEN 1 tablet two times a day.Disp: 67 tabletRfl: 1 Prescriptions as of 12/02/2023 - loratadine-pseudoephedrin e ER (CLARITIN-D 24 HOUR) 10-240 mg Tb24 Take 1 tablet by mouth once daily. - magnesium oxide 400 mg magnesium cap Take 1 capsule by mouth once daily. - verapamil 80 mg tablet Take 1 tablet by mouth once daily for 7 days, THEN 1 tablet two times a day. - meclizine (ANTIVERT) 25 mg tab Take 25 mg by mouth four times a day as needed. - cyproheptadine (PERIACTIN) 4 mg tablet Take 1 tablet by mouth every 12 hours. - desvenlafaxine ER (PRISTIQ) 50 mg 24 hr tablet Take 1 tablet by mouth every afternoon. - iv contrast (will be provided with radiology test) MRI Brain Inject, intravenously, once for 1 dose.No IV access, insert saline lock prior to beginning of sedation, infusion, injection of imaging exam.Discontinue saline lock post exam. If Pt. has a central line or IVAD, may access for administration according to line specific nursing protocol.Once exam is complete flush line and de-access according to line specific nursing protocol in the MR contrast administration guidelines link Problem List As Of Jamal (more content not included)... Normal [facility] MR Brain WO and W contrast I Von 12-02-2023 Radiology Study observation (narrative) [facility] [place] IMPRESSION: No convincing intracranial mass or abnormal enhancement, specifically in the bilateral internal auditory canals. No acute intracranial process. Respiratory Therapy Director: PSCB Transcribe Date/Time: Dec 02 2023 3:19P Dictated by : YASEMIN PERRY DO This examination was interpreted and the report reviewed and electronically signed by: YASEMIN PERRY DO on Dec 02 2023 3:24PM [facility] DIVISION OF RADIOLOGY * * *Final Report* * * DATE OF EXAM: Dec 02 2023 2:08PM CAM 0295 - MRI BRAIN WO/W IVCON / PROCEDURE REASON: Vertigo * * * * Physician Interpretation * * * * EXAMINATION: MRI BRAIN WO/W IVCON CLINICAL HISTORY: Vertigo. CN VII-VIII. Hearing loss, sensorineural. TECHNIQUE: MRI brain internal auditory canal protocol without and with IV contrast. MQ: MRBWOW_2 Contrast: 20 mL Dotarem IV COMPARISON: None. RESULT: Acute Change: There is no evidence of restricted diffusion to suggest an acute infarct. Hemorrhage: No evidence of prior parenchymal hemorrhage within the constraints of the acquisition. Mass Lesion/ Mass Effect: There is a punctate 1 mm focus of enhancement within the fundus of the right internal auditory canal (12:40) with no convincing discrete nodularity on the corresponding CISS sequence, likely representing capillary blush or Familia's ganglion enhancement. Otherwise, no additional discrete mass or abnormal enhancement within the bilateral internal auditory canal. Bilateral inner ear structures demonstrate normal morphology and signal characteristics and without abnormal enhancement. No abnormal parenchymal or leptomeningeal enhancement is noted otherwise in the visualized parenchyma following contrast administration. No significant mass effect on the brainstem or cerebellum. Chronic Change: The white matter is within normal limits of signal intensity for age. Parenchyma: No significant volume loss for age. The brain parenchyma is otherwise within normal limits of signal intensity and morphology. Ventricles: Normal caliber and morphology. Skull Base: Hypothalamic and pituitary region are grossly normal. Craniocervical junction is normal. No significant marrow replacement process. Vasculature: Major intracranial arterial structures, and dural venous sinuses show typical flow void, suggesting patency by spin echo criteria. Other: Mucosal thickening in the ethmoid air cells and bilateral maxillary sinuses.. The orbits and extracranial soft tissues are unremarkable. DIVISION OF RADIOLOGY Provider, [facility] - 12/02/2023 * * *Final Report* * * DATE OF EXAM: Dec 02 2023 2:08PM CAM 0295 - MRI BRAIN WO/W IVCON / PROCEDURE REASON: Vertigo * * * * Physician Interpretation * * * * EXAMINATION: MRI BRAIN WO/W IVCON CLINICAL HISTORY: Vertigo. CN VII-VIII. Hearing loss, sensorineural. TECHNIQUE: MRI brain internal auditory canal protocol without and with IV contrast. MQ: MRBWOW_2 Contrast: 20 mL Dotarem IV COMPARISON: None. RESULT: Acute Change: There is no evidence of restricted diffusion to suggest an acute infarct. Hemorrhage: No evidence of prior parenchymal hemorrhage within the constraints of the acquisition. Mass Lesion/ Mass Effect: There is a punctate 1 mm focus of enhancement within the fundus of the right internal auditory canal (12:40) with no convincing discrete nodularity on the corresponding CISS sequence, likely representing capillary blush or Familia's ganglion enhancement. Otherwise, no additional discrete mass or abnormal enhancement within the bilateral internal auditory canal. Bilateral inner ear structures demonstrate normal morphology and signal characteristics and without abnormal enhancement. No abnormal parenchymal or leptomeningeal enhancement is noted otherwise in the visualized parenchyma following contrast administration. No significant mass effect on the brainstem or cerebellum. Chronic Change: The white matter is within normal limits of signal intensity for age. Parenchyma: No significant volume loss for age. The brain parenchyma is otherwise within normal limits of signal intensity and morphology. Ventricles: Normal caliber and morphology. Skull Base: Hypothalamic and pituitary region are grossly normal. Craniocervical junction is normal. No significant marrow replacement process. Vasculature: Major intracranial arterial structures, and dural venous sinuses show typical flow void, suggesting patency by spin echo criteria. Other: Mucosal thickening in the ethmoid air cells and bilateral maxillary sinuses.. The orbits and extracranial soft tissues are unremarkable. IMPRESSION IMPRESSION: No convincing intracranial mass or abnormal enhancement, specifically in the bilateral internal auditory canals. No acute intracranial process. Respiratory Therapy Director: PSCB Transcribe Date/Time: Dec 02 2023 3:19P Dictated by : YASEMIN PERRY DO This examination was interpreted and the report reviewed and electronically signed by: YASEMIN PERRY DO on Dec 02 2023 3:24PM [facility] MR Brain WO and W contrast I VOrdered By: Adwoa Provider on 12-02-2023 [facility] MRI BRAIN WO/W IVCONon 12-01 MRI BRAIN WO/W IVCON * * *Final Report* * * DATE OF EXAM: Dec 02 2023 2:08PM CAM 0295 - MRI BRAIN WO/W IVCON / PROCEDURE REASON: Vertigo * * * * Physician Interpretation * * * * EXAMINATION: MRI BRAIN WO/W IVCON CLINICAL HISTORY: Vertigo. CN VII-VIII. Hearing loss, sensorineural. TECHNIQUE: MRI brain internal auditory canal protocol without and with IV contrast. MQ: MRBWOW_2 Contrast: 20 mL Dotarem IV COMPARISON: None. RESULT: Acute Change: There is no evidence of restricted diffusion to suggest an acute infarct. Hemorrhage: No evidence of prior parenchymal hemorrhage within the constraints of the acquisition. Mass Lesion/ Mass Effect: There is a punctate 1 mm focus of enhancement within the fundus of the right internal auditory canal (12:40) with no convincing discrete nodularity on the corresponding CISS sequence, likely representing capillary blush or Familia's ganglion enhancement. Otherwise, no additional discrete mass or abnormal enhancement within the bilateral internal auditory canal. Bilateral inner ear structures demonstrate normal morphology and signal characteristics and without abnormal enhancement. No abnormal parenchymal or leptomeningeal enhancement is noted otherwise in the visualized parenchyma following contrast administration. No significant mass effect on the brainstem or cerebellum. Chronic Change: The white matter is within normal limits of signal intensity for age. Parenchyma: No significant volume loss for age. The brain parenchyma is otherwise within normal limits of signal intensity and morphology. Ventricles: Normal caliber and morphology. Skull Base: Hypothalamic and pituitary region are grossly normal. Craniocervical junction is normal. No significant marrow replacement process. Vasculature: Major intracranial arterial structures, and dural venous sinuses show typical flow void, suggesting patency by spin echo criteria. Other: Mucosal thickening in the ethmoid air cells and bilateral maxillary sinuses.. The orbits and extracranial soft tissues are unremarkable. IMPRESSION: No convincing intracranial mass or abnormal enhancement, specifically in the bilateral internal auditory canals. No acute intracranial process. Respiratory Therapy Director: PSCB Transcribe Date/Time: Dec 02 2023 3:19P Dictated by : YASEMIN PERRY DO This examination was interpreted and the report reviewed and electronically signed by: YASEMIN PERRY DO on Dec 02 2023 3:24PM EST [id number] Normal [facility] 09-30-2023 CNPN Telephone (HNQ) ----- JOSE F MCINTYRE ([id number]) 1975 Date Time Provider Department 09/30/23 LARISSA GALAVIZ [facility] During your visit today, we recorded the following information about you: Alana Solano 09/30/2023 2:13 PM Signed Person Calling:Pharmacy Reason for Call: calling for frequency on diazePAM (VALIUM) 5 mg tablet. Pt Phone #: [phone] Pharmacy Name and # : [facility] [phone] Pt last seen: 09/26/2023 Kellie Quigley, YUMIKO 09/30/2023 2:31 PM Signed Daily prn? Every 8 hr prn? Kellie Hough, RN 09/30/2023 3:36 PM Signed Larissa Galaviz MD Otol Ear Phone Pool 17 minutes ago (3:15 PM) MB Q 8hr PRN Kellie Hough, RN 09/30/2023 3:36 PM Signed Called and spoke with [facility]. Provided clarification with read back for valium q8hr prn. Nothing further needed. Allergies As of Date: 09/30/2023 Noted Allergy Reaction CIPROFLOXACIN 09/26/2023 14 - Other: See Comments Comments: Cold sweets, dizziness PREDNISONE 09/26/2023 14 - Other: See Comments Comments: Numbness, tingling-fingers, anxiety VICODIN (HYDROCODONE-ACETAMINOPHE *09/26/2023 5 - Intolerance Comments: Dizziness, sweats, numbness in legs Date Reviewed: 09/26/2023 Reviewed by: Montserrat Flanagan MA - Fully Assessed Reason for Visit: Patient Update [1234] Prescriptions as of 09/30/2023 - meclizine (ANTIVERT) 25 mg tab Take 25 mg by mouth four times a day as needed. - cyproheptadine (PERIACTIN) 4 mg tablet Take 1 tablet by mouth every 12 hours. - desvenlafaxine ER (PRISTIQ) 50 mg 24 hr tablet Take 1 tablet by mouth every afternoon. - iv contrast (will be provided with radiology test) MRI Brain Inject, intravenously, once for 1 dose.No IV access, insert saline lock prior to beginning of sedation, infusion, injection of imaging exam.Discontinue saline lock post exam. If Pt. has a central line or IVAD, may access for administration according to line specific nursing protocol.Once exam is complete flush line and de-access according to line specific nursing protocol in the MR contrast administration guidelines link - diazePAM (VALIUM) 5 mg tablet Take 1 tablet by mouth as needed (vertigo) for up to 30 days. Problem List As Of Date: 09/30/2023 (None) Encounter Status:Closed by KELLIE HOUGH on 09/30/23 Normal [facility] CNOVon 09-26-2023 CNOV Office Visit (OTAUW ) ----- JOSE F MCINTYRE ([id number]) 1975 M Date Time Provider Department 09/26/23 9:30 AM LISA LI During your visit today, we recorded the following information about you: Lisa Li AUD 10/25/2023 12:11 PM Signed [facility] [place] AUDIOLOGIC EVALUATION REPORT Name: Jose F Mcintyre CC#: [id number] Date of Service: 09/26/2023 Date of : 1975 Age: [age] year old Referred by: Larissa Galaviz [address] [place] [address] Referred for: Evaluation of suspected change in hearing, tinnitus, or balance. Referral documented: In an order in Epic Patient's major complaints: Dizziness/vertigo/imbalan ce Jose F Mcintyre was seen for an initial audiologic evaluation. - Reported years of recurrent episodes of vertigo lasting several hours - Reported left pulsatile tinnitus in addition to constant ringing tinnitus bilaterally - Denied otalgia, otorrhea, aural fullness, and prior otologic surgery IMPRESSIONS RIGHT EAR: Hearing within normal limits LEFT EAR: Hearing within normal limits AUDIOLOGIC EVALUATION Following is a brief interpretation of the obtained findings from the audiologic evaluation. Refer to the Auditory Test Record for complete audiometric results. The patient was counseled about the test findings and appropriate audiologic recommendations were made. SUMMARY: Audiogram can be viewed under Proc. OTOSCOPY RIGHT EAR: Otoscopic inspection revealed ear canal was clear with an identifiable cone of light. LEFT EAR: Otoscopic inspection revealed ear canal was clear with an identifiable cone of light. TYMPANOMETRY Description of procedure: This test is an objective evaluation of middle ear function. CPT code: 92986 RIGHT EAR: Normal ME function. LEFT EAR: Normal ME function. ACOUSTIC REFLEXES Description of procedure: This test is an objective measure of auditory and facial nerve pathways. CPT code: 60434, 73898 RIGHT EAR PROBE EAR: (ipsi right stimulus ear; contralateral left stimulus ear): Acoustic Reflex Pattern Ipsilateral acoustic reflexes present WNL for 500-2000 Hz. Contralateral acoustic reflexes present WNL for 500-2000 Hz. Acoustic Reflex Decay (left stimulus ear): Did not test. LEFT EAR PROBE EAR: (ipsi left stimulus ear; contralateral right stimulus ear): Acoustic Reflex Pattern Ipsilateral acoustic reflexes present WNL for 500-2000 Hz. Contralateral acoustic reflexes present WNL for 500-2000 Hz. Acoustic Reflex Decay (right stimulus ear):Did not test. PURE TONE AUDIOMETRY AND SPEECH TESTING Description of procedure: This test is an objective evaluation hearing sensitivity via air and bone conduction and speech recognition testing. CPT code: 87717 RIGHT EAR: Hearing Sensitivity: Hearing sensitivity within normal limits. Word Recognition Score: Excellent (100%). WRS is consistent with hearing sensitivity. Words were presented at 60 dB HL is above (greater than or equal to 60 dB HL) intensity level for average conversational speech. The NU-6 Ordered by Difficulty Word List (10 words) was used for testing. LEFT EAR: Hearing Sensitivity: Hearing sensitivity within normal limits. Word Recognition Score: Excellent (100%). WRS is consistent with hearing sensitivity. Words were presented at 60 dB HL is above (greater than or equal to 60 dB HL) intensity level for average conversational speech. The NU-6 Ordered by Difficulty Word List (10 words) was used for testing. RECOMMENDATIONS * Continue medical follow-up with Renzo Galaviz MD. * Re-evaluation as medically indicated. * Return if a change in hearing is noted. Leeanne Kendall, [facility] Clinical Leak Inspector OTERO Abbrev- iation Definition Degree of hearing sensitivity dB range WNL within normal limits WNL 0 - 20 SNHL sensorineural hearing loss Mild 20-40 CHL conductive hearing loss Moderate 40-55 MHL mixed hearing loss Moderately-Severe 55-70 WRS word recognition score Severe 70-90 ME middle ear Profound 90 + TM tympanic membrane Referring Provider: LARISSA GALAVIZ [[id number]] Allergies As of Date: 09/26/2023 Noted Allergy Reaction CIPROFLOXACIN 09/26/2023 14 - Other: See Comments Comments: Cold sweets, dizziness PREDNISONE 09/26/2023 14 - Other: See Comments Comments: Numbness, tingling-fingers, anxiety VICODIN (HYDROCODONE-ACETAMINOPHE *09/26/2023 5 - Intolerance Comments: Dizziness, sweats, numbness in legs Date Reviewed: 09/26/2023 Reviewed by: Barzal, Montserrat, MA - Fully Assessed Reason for Visit: Dizziness [36] Primary Visit Diagnosis:Dizziness [R42] Other Visit Diagnosis:Tinnitus, bilateral [H93.13] Order(s):HEARING TEST/AUDIOGRAM [[id number]] Order #: [id number]: 1 Prescriptions as of 10/25/2023 - meclizine (ANTIVERT) 25 mg tab Take 25 mg by mouth four times a day as needed. - cyproheptadine (PERIACTIN) 4 mg tablet Take 1 (more content not included)... Normal [facility] Office Visit (OTOLWI ) ----- MCINTYREJOSE F Newsome ([id number]) 1975 M Date Time Provider Department 09/26/23 10:00 AM LARISSA GALAVIZ During your visit today, we recorded the following information about you: Pulse Respiration 68/minute 18/minute Larissa Galaviz MD 09/26/2023 11:43 AM Signed SECTION OF OTOLOGY, NEUROTOLOGY AND LATERAL SKULL BASE SURGERY [facility] [place], [facility] History History of Present Illness: Jose F Mcintyre is a 47 year old male who presents complaining of vertigo. Started in 2006. Episodes start with a tingling sensation in the ears followed by cold sweat and flushing sensation then room spinning vertigo. Episodes last for hours to days. During the episodes he has photophobia without photophobia. He denies any headaches/migraines, hearing loss, ear pain, ear fullness, or otorrhea. No prior otologic surgery. He does have high-pitched tinnitus as well as a low pitched pulsatile whooshing sound, especially on the left side. He has been treated extensively by his local physicians with oral and intramuscular steroid injections and meclizine as needed. The steroids help somewhat but then the episodes return after the course is completed. Meclizine has helped in the past. He did have vestibular testing locally several years ago but was unable to complete the test due to vertigo induced by calorics. He has not had any vestibular physical therapy. Reportedly has had prior CT brain and MRI brain scans that were normal. Images are unavailable for review. No past medical history on file. No past surgical history on file. Current Outpatient Medications on File Prior to Visit Medication Sig meclizine (ANTIVERT) 25 mg tab Take 25 mg by mouth four times a day as needed. cyproheptadine (PERIACTIN) 4 mg tablet Take 1 tablet by mouth every 12 hours. desvenlafaxine ER (PRISTIQ) 50 mg 24 hr tablet Take 1 tablet by mouth every afternoon. meclizine (ANTIVERT) 25 mg tab 1 tablet as needed Orally QID No current facility-administered medications on file prior to visit. ALLERGIES Allergen Reactions Ciprofloxacin Other: See Comments Cold sweets, dizziness Prednisone Other: See Comments Numbness, tingling-fingers, anxiety Vicodin [Hydrocodon* Intolerance Dizziness, sweats, numbness in legs No family history on file. Physical Exam Patient is alert, oriented Head examination: normocephalic Binocular microscopic examination of ears: Right ear: Pinna: normal External canal : patent Tympanic membrane:normal Left ear: Pinna: normal External canal: patent Tympanic membrane: normal Vestibular examination: Romberg Stable Sharpened Romberg Falls to the right Fukuda stepping test turns to the right Nystagmus: none Reading and Hallpike maneuver: not tested Walking: normal CN VII: Face is symmetric with normal eye closure and smile. Test Results Audiogram AND Tympanogram (personally reviewed) Tympanometry Vestibular testing Imaging (personally reviewed) Assessment and Plan Jose F Ames history, physical examination, and diagnostic studies are consistent with the following diagnoses and associated treatment plan of care. Vertigo - MRI BRAIN WO/W IVCON; Future - iv contrast (will be provided with radiology test); MRI Brain Inject, intravenously, once for 1 dose.No IV access, insert saline lock prior to beginning of sedation, infusion, injection of imaging exam.Discontinue saline lock post exam. If Pt. has a central line or IVAD, may access for administration according to line specific nursing protocol.Once exam is complete flush line and de-access according to line specific nursing protocol in the MR contrast administration guidelines link - VESTIBULAR TEST BATTERY; Future - diazePAM (VALIUM) 5 mg tablet; Take 1 tablet by mouth as needed (vertigo) for up to 30 days. - ECOCHG (ELECTROCOCHLEOGRAPHY); Future Other orders - meclizine (ANTIVERT) 25 mg tab; Take 25 mg by mouth four times a day as needed. - cyproheptadine (PERIACTIN) 4 mg tablet; Take 1 tablet by mouth every 12 hours. - desvenlafaxine ER (PRISTIQ) 50 mg 24 hr tablet; Take 1 tablet by mouth every afternoon. Complex history of severe vertigo episodes lasting hours to days. No ear symptoms or headaches. Differential at this point includes isolated vestibular hydrops vs vestibular migraines without headache. -MRI IAC to rule out tumor or other central source -vestibular test battery -electrocochleography -low salt and low caffeine diet -follow up after testing complete I have answered all of his questions. Bal Cole MD for the service of Larissa Galaviz MD I performed a history, reviewed otero exam findings and diagnostic studies, and discussed management plan with the resident. I reviewed the resident's note and agree with the documented findings and plan of care. Si (more content not included)... Normal [facility] CULTURE URINEon 04-17-2022 CULTURE URINE Culture Observations : NO GROWTH. Normal [facility] Comment on above: Performed By: #### U RCX #### [facility] [address] [place] [address] Dr. Kendra Fan UA RANDOM W/MICROSCOPICon BACTERIA NONE SEEN Normal NONE SEEN [facility] Comment on above: Performed By: #### U AMIC #### [facility] [address] [place] [address] Dr. Kendra Fan Bilirubin Ql (U) Unable to perform te sting due to color interference. Abnormal NEGATIVE [facility] Comment on above: Performed By: #### U AMIC #### [facility] [address] [place] [address] Dr. Kendra Fan CAST NONE SEEN Normal NONE SEEN [facility] Comment on above: Performed By: #### U AMIC #### [facility] [address] [place] [address] Dr. Kendra Fan Clarity (U) CLEAR Normal CLEAR [facility] Comment on above: Performed By: #### U AMIC #### [facility] [address] [address] [address] Kendra Fan Color (U) DK. ORANGE Abnormal YELLOW [facility] Comment on above: Performed By: #### U AMIC #### [facility] [address] [address] [address] Kendra Fan Crystals LM Nom (Urine sed) NONE SEEN Normal NONE SEEN [facility] Comment on above: Performed By: #### U AMIC #### [facility] [address] [address] [address] Kendra Fan Epithelial cells LM Ql (Urine sed) FEW Abnormal NONE SEEN /RARE [facility] Comment on above: Performed By: #### U AMIC #### [facility] [address] [place] [address] Dr. Kendra Fan Glucose Ql (U) Unable to perform te sting due to color interference. Abnormal NEGATIVE [facility] Comment on above: Performed By: #### U AMIC #### [facility] [address] [place] [address] Dr. Kendra Fan Hemoglobin Ql (U) Unable to perform te sting due to color interference. Abnormal NEGATIVE [facility] Comment on above: Performed By: #### U AMIC #### [facility] [address] [place] [address] Dr. Kendra Fan Ketones Ql (U) Unable to perform te sting due to color interference. Abnormal NEGATIVE [facility] Comment on above: Performed By: #### U AMIC #### [facility] [address] [address] [address] Kendra Fan LEUKOCYTES Unable to perform te sting due to color interference. Abnormal NEGATIVE [facility] Comment on above: Performed By: #### U AMIC #### [facility] [address] [address] [address] Kendra Fan MUCOUS TRACE Abnormal NONE SEEN [facility] Comment on above: Performed By: #### U AMIC #### [facility] [address] [address] [address] Kendra Fan Nitrite Ql (U) Unable to perform te sting due to color interference. Abnormal NEGATIVE [facility] Comment on above: Performed By: #### U AMIC #### [facility] [address] [address] [address] Kendra Fan pH Unable to perform te sting due to color interference. Abnormal 5-9 [facility] Comment on above: Performed By: #### U AMIC #### [facility] [address] [address] [address] Kendra Fan RBC NONE SEEN Abnormal 0-2 [facility] Comment on above: Performed By: #### U AMIC #### [facility] [address] [address] [address] Kendra Fan SPEC GRAVITY 1.010 Normal 1.005-<=1.025 [facility] Comment on above: Performed By: #### U AMIC #### [facility] [address] [address] [address] Kendra Fan UA PROTEIN Unable to perform te sting due to color interference. Normal NEGATIVE/ TRACE [facility] Comment on above: Performed By: #### U AMIC #### [facility] [address] [address] [address] Kendra Fan UROBILINOGEN Unable to perform te sting due to color interference. Normal 0.2 - 1.0 [facility] Comment on above: Performed By: #### U AMIC #### [facility] [address] [address] [address] Kendra Fan WBC NONE SEEN Normal NONE SEEN [facility] Comment on above: Performed By: #### U AMIC #### [facility] [address] [address] [address] Kendra Fan Facesheeton 03-18-2020 Facesheet [id number]:127 Normal [facility] Provider Letter FTMCon 03-16 Provider Letter [facility] Usama Stern [address] [place] [address] Re: JOSE F MCINTYRE Date of : 1975 Thank you for your referral of Jose F Mcintyre who was seen on consultation on 03/15/2020 for lipoma of posterior neck. I have enclosed my consultation notes for your review. Sincerely, Rodriguez Gray MD General Surgery Normal [facility] RAD - Ultrasound Reporton RAD - Ultrasound Report [id number]:127 Normal [facility] Ambulatory Clinical Summaryo n 03-15-2020 Ambulatory Clinical Summary {[id number] Normal [facility] General Surgery Office/Clini c Noteon 03-15-2020 General Surgery Office/Clinic Note Chief Complaint referral for posterior neck mass HPI Staff 44 year old male presents on consultation from Dr. Stern for posterior neck mass. Present for several months. Maybe slight increase in size. Not necessarily painful. Never opened or drained. History of Present Illness 44 yo male with over 1 year h/o lump left posterior neck; no soreness, no real change in size; had US of area last month that revealed 2 separate subcutaneous areas of induration 1.5 and 2.2 cm; denies injury to area; had small lump on right chest wall in past; no asa or NSAID use. Review of Systems PHQ Score Initial Depression Screen Score: 0 ROS - Provider Constitutional: no fever, no sweats, no weight loss. Eyes: no glasses, no blurred vision, no visual loss. ENMT: no dentures, no hoarseness, no swallowing difficulties, no hearing loss, no ear infection(s), no nose bleeds. Cardiovascular: normal blood pressure, no chest pain, regular heartbeat, no heart murmur. Respiratory: no shortness of breath, no cough, no asthma, no wheezing. Gastrointestinal: no nausea, no vomiting, no diarrhea, no constipation, no blood in stool, no change in bowel habits, no abdominal pain, no hepatitis. Genitourinary: no kidney stones, no urine infection, no dysuria. Musculoskeletal: no pain, no weakness. Skin: no changing moles, no rash, yes skin lumps. Neurologic: no seizures, no epilepsy, no headache. Psychiatric: no emotional or psychiatric problem. Heme/Lymph: no bleeding problems, no anemia, no blood clots, no transfusions. Allergy/Immunologic: no swollen lymph nodes/glands, no IV drug abuse. Other: Additional ROS info: Except as noted in the above Review of Systems and in the History of Present Illness, all other systems have been reviewed and are negative or noncontributory. Physical Exam Vitals & Measurements T: 36.8 ?C (Tympanic) HR: 68(Peripheral) RR: 16 BP: 120/72 HT: 185.4 cm HT: 185.42 cm WT: 116.4 kg WT: 116.43 kg BMI: 33.87 HEENT: normal conjunctiva, sclera clear, no scleral icterus, EOM intact, PERRLA, oral mucosa moist without lesions. Neck: trachea midline, no mass, symmetric, no thyromegaly or nodules, no adenopathy Respiratory: lungs CTA, respirations non labored. Cardiovascular: regular rate and rhythm, no murmur, no pedal edema or varicosities. Lymphatic: no cervical adenopathy, no axillary adenopathy, Musculoskeletal: normal gait, digits and nails without infection, nodes, cyanosis, clubbing. Skin: no rashes, no lesions, no ulcers, 3cm deep subcutaneous nodule, soft; nontender, no overlying skin changes Psychiatric/Neuro: oriented to time, place, person, judgement normal, affect appropriate for age, insight intact, no focal deficits. Tests: x-rays reviewed, review of old records completed, Assessment/Plan 1. Lipoma of neck (D17.0: Benign lipomatous neoplasm of skin and subcutaneous tissue of head, face and neck) small, asymptomatic; recommend observation for now, if becomes symptomatic or enlarges, would recommend excisional biopsy for definitive diagnosis and treatment; call with problems/questions. 2. BMI 33.0-33.9,adult (Z68.33: Body mass index (BMI) 33.0-33.9, adult) recommend diet and exercise. Ordered: Most recent diastolic blood pressure <80 mm Hg 3078F Systolic BP <130 mm Hg (Most Recent) 3074F Follow-up With When Contact Information AMENA BUCKLEY, Rodriguez Downs if needed [address] [place] [address]- Additional Instructions: Patient Education Lipoma Problem List/Past Medical History Ongoing Allergic rhinitis Insomnia Lipoma of neck Tinea versicolor Historical No qualifying data Procedure/Surgical History Vasectomy (07/15/2006). Medications Adipex-P 37.5 mg Tab, 37.5 mg= 1 tab(s), Oral, Daily meclizine 25 mg Tab, 25 mg= 1 tab(s), Oral, TID, PRN Multivitamins and Minerals, 1 tab, Oral, Daily Allergies Bactrim (Dizziness) Cipro (Dizziness) Social History Alcohol - Denies Alcohol Use, 03/14/2020 Substance Abuse - Denies Substance Abuse, 03/14/2020 Tobacco Never (less than 100 in lifetime) Tobacco Use:., 03/15/2020 Family History Hyperlipidemia: Mother and Father. Hypertension: Mother and Father. Normal [facility] Comment on above: Result Comment: Elec tronically Signed By: AMENA BUCKLEY, Rodriguez Yeh.jono\Date and Time Signed: 03/15/20 16:41 EDT Patient Educationon 03-15-20 20 Patient Education Family Medicine Lipoma A lipoma is a noncancerous (benign ) tumor composed of fat cells. They are usually found under the skin (subcutaneous ). A lipoma may occur in any tissue of the body that contains fat. Common areas for lipomas to appear include the back, shoulders, buttocks, and thighs. Lipomas are a very common soft tissue growth. They are soft and grow slowly. Most problems caused by a lipoma depend on where it is growing. DIAGNOSIS A lipoma can be diagnosed with a physical exam. These tumors rarely become cancerous, but radiographic studies can help determine this for certain. Studies used may include: ? Computerized X-ray scans (CT or CAT scan). ? Computerized magnetic scans (MRI). TREATMENT Small lipomas that are not causing problems may be watched. If a lipoma continues to enlarge or causes problems, removal is often the best treatment. Lipomas can also be removed to improve appearance. Surgery is done to remove the fatty cells and the surrounding capsule. Most often, this is done with medicine that numbs the area (local anesthetic ). The removed tissue is examined under a microscope to make sure it is not cancerous. Keep all follow-up appointments with your caregiver. SEEK MEDICAL CARE IF: ? The lipoma becomes larger or hard. ? The lipoma becomes painful, red, or increasingly swollen. These could be signs of infection or a more serious condition. Document Released: 06/21/2003 Document Revised: 09/22/2012 Document Reviewed: 12/01/2010 ExitCare? Patient Information ?[address] [employer] [facility] Physician Referralon 020 Physician Referral [id number]:12 7 Normal [facility] Social History Date Type Detail Facility Start: 12-02-2023 Tobacco smoking stat [facility] Never smoked tobacco [facility] Start: 12-02-2023 Tobacco use and exposure Smokeless t obacco non-user [facility] Start: 12-02-2023 Alcohol intake Lifetime non-d roxane (finding) [facility] Start: 09-26-2023 End: 12-02-2023 Gender identity Not on file [facility] Start: 09-26-2023 End: 12-02-2023 History of Social function [facility] Start: 1975 Sex Assigned At Not on file [facility] Tobacco smoking stat [facility] Tobacco smoking consumption unknown [facility] National Score (1-10 0), lower number is lower risk 80 [facility] Vital Signs Date Time Vital Sign Value Performing Clinician Faci lity 09-26-2023 10:30-0400 Heart rate 68 /min Larissa Galaviz MD Work Phone: [facility] 09-26-2023 10:30-0400 Respiratory rate 18 /min Larissa Galaviz MD Work Phone: [facility] 09-26-2023 10:30-0400 SaO2% (BldA) [Mass fraction] 95 % Larissa Galaviz MD Work Phone: [facility] Clinical Notes 09-26-2023 to 12-02-2023 Larissa Galaviz MD - 12/02/2023 4:24 PM Livan Lehman, RN - 12/02/2023 2:40 PM Clarissa Mcmullen, RT(R) - 12/02/2023 2:40 PM Radha Veloz, PhD - 12/02/2023 10:00 AM EDT Note Date & Type Note Facility 12-02-2023 Note HNO ID: [id number] Author: LARISSA GALAVIZ MD Service: ? Author Type: Physician Type: Progress Notes Filed: 12/02/2023 18:34 Note Text: SECTION OF OTOLOGY, NEUROTOLOGY AND LATERAL SKULL BASE SURGERY Department of Otolaryngology - Head and Neck Surgery [facility] [place] History Mr. JOSE F MCINTYRE is a 47 year old male returning for follow-up of his dizziness He recently had a steroid injection 3 weeks ago Test Results Vestibular testing Normal vestibular evaluation. Symmetrical and robust peripheral vestibular responses and normal central vestibular function. Low likelihood of active vestibular system involvement to account for symptoms described below. While today's findings indicate normal vestibular function, cannot rule out possible central source (migraine variant?) as potential sources or contributors to symptoms. Clinical correlation needed. Note, Jose F reported significant symptoms during rotational chair testing and monothermal caloric irrigation responses even with reduced time and cool temperature. These symptoms may occur with higher incidence and intensity in patients with migraine variants (Vitor et al., 2020). Imaging (personally reviewed) No convincing intracranial mass or abnormal enhancement, specifically in the bilateral internal auditory canals. No acute intracranial process. Assessment and Plan Jose F Mcintyre's history, physical examination, and diagnostic studies are consistent with the following diagnoses and associated treatment plan of care. Dizziness - VITAMIN B6/PYRIDOXIN; Future - VITAMIN B12; Future - IRON AND TIBC; Future Vestibular migraine - magnesium oxide 400 mg magnesium cap; Take 1 capsule by mouth once daily. - verapamil 80 mg tablet; Take 1 tablet by mouth once daily for 7 days, THEN 1 tablet two times a day. Other orders - loratadine-pseudoephedrine ER (CLARITIN-D 24 HOUR) 10-240 mg Tb24; Take 1 tablet by mouth once daily. We discussed that based on the above findings, his dizziness is likely secondary to vestibular migraine. We will therefore start therapy with verapamil, ramping up to 80mg BID. We also discussed lifestyle changes. I will see him back in 2 months I have answered all of his questions. Signed by: Larissa Galaviz MD, FACS Section Head, Otology-Neurotology Awning Hanger Supervisor, Hearing Implant Program Head and Neck [facility] Medical Decision Making: Problems: Low: Stable chronic illness Data: Unique test result(s) reviewed: 2 Risk: Moderate: Moderate risk from testing/treatment Medical Decision Making Level: 3 - Low [facility] 12-02-2023 History of Present illness Narrative SECTION OF OTOLOGY, NEUROTOLOGY AND LATERAL SKULL BASE SURGERY Department of Otolaryngology - Head and Neck Surgery [facility] [place] History Mr. JOSE F MCINTYRE is a 47 year old male returning for follow-up of his dizziness He recently had a steroid injection 3 weeks ago Test Results Vestibular testing Normal vestibular evaluation. Symmetrical and robust peripheral vestibular responses and normal central vestibular function. Low likelihood of active vestibular system involvement to account for symptoms described below. While today's findings indicate normal vestibular function, cannot rule out possible central source (migraine variant?) as potential sources or contributors to symptoms. Clinical correlation needed. Note, Jose F reported significant symptoms during rotational chair testing and monothermal caloric irrigation responses even with reduced time and cool temperature. These symptoms may occur with higher incidence and intensity in patients with migraine variants (Vitor et al., 2020). Imaging (personally reviewed) No convincing intracranial mass or abnormal enhancement, specifically in the bilateral internal auditory canals. No acute intracranial process. Assessment and Plan Jose F Mcintyre's history, physical examination, and diagnostic studies are consistent with the following diagnoses and associated treatment plan of care. Dizziness - VITAMIN B6/PYRIDOXIN; Future - VITAMIN B12; Future - IRON AND TIBC; Future Vestibular migraine - magnesium oxide 400 mg magnesium cap; Take 1 capsule by mouth once daily. - verapamil 80 mg tablet; Take 1 tablet by mouth once daily for 7 days, THEN 1 tablet two times a day. Other orders - loratadine-pseudoephedrine ER (CLARITIN-D 24 HOUR) 10-240 mg Tb24; Take 1 tablet by mouth once daily. We discussed that based on the above findings, his dizziness is likely secondary to vestibular migraine. We will therefore start therapy with verapamil, ramping up to 80mg BID. We also discussed lifestyle changes. I will see him back in 2 months I have answered all of his questions. Signed by: Larissa Galaviz MD, FACS Section Head, Otology-Neurotology Awning Hanger Supervisor, Hearing Implant Program Head and Neck [place] [facility] Medical Decision Making: Problems: Low: Stable chronic illness Data: Unique test result(s) reviewed: 2 Risk: Moderate: Moderate risk from testing/treatment Medical Decision Making Level: 3 - Low documented in this encounter [facility] 12-02-2023 History of Present illness Narrative Radiology Service Progress Note DATE OF SERVICE: December 02, 2023 TIME: 12:55 PM PATIENT WEIGHT: 265 LBS PATIENT IDENTITY VERIFICATION COMPLETED USING TWO (2) STANDARD IDENTIFIERS: Name and Date of confirmed by patient verbally and Name and Date of confirmed by identification band. FALL SCREENING: Has the patient had 2 falls in the last year or 1 fall with injury or currently using an Ambulatory Assistive Device (Walker, Cane, Wheelchair, Crutches, etc.)? No PATIENT GENDER DATA: Male ALLERGIES: Reviewed and unchanged CONTRAST ALLERGY: No EXAM: MRI - CONTRAST TYPE: GROUP II IV SITE: Ambulatory: A peripheral IV was started in the Right antecubital site with a Angio cath: 22 gauge. and A Saline lock was inserted per protocol IV SITE APPEARANCE: Clean,Dry and Intact SIGNATURE: Livan Thomas RN PATIENT NAME: Jose F Mcintyre DATE: December 02, 2023 TIME: 12:55 PM Radiology Service Progress Note PATIENT NAME: Jose F Mcintyre DATE OF SERVICE: December 02, 2023 TIME: 1:19 PM PATIENT IDENTITY VERIFICATION COMPLETED USING TWO (2) IDENTIFIERS: Name and Date of confirmed by patient verbally. FALL SCREENING: Has the patient had 2 falls in the last year or 1 fall with injury or currently using an Ambulatory Assistive Device (Walker, Cane, Wheelchair, Crutches, etc.)? No PATIENT GENDER DATA: Male PATIENT RELEVANT IMPLANT DATA REVIEWED: Yes PATIENT PRESENTS WITH AN IMPLANTABLE OR ATTACHED ASSISTANT ACCOUNTING MANAGER: No RADIOLOGY DEPARTMENT: MR; Exam(s) Completed: Head: IAC/CPA PERIPHERAL IV DATA: Site assessment: Clean,Dry and Intact, Site disposition Discontinued SIGNED BY: RT Gee(R) December 02, 2023 1:19 PM documented in this encounter [facility] 12-02-2023 Note HNO ID: [id number] Author: CLARISSA WATKINS RT(Jennifer) Service: Radiology Author Type: Management Information Systems Director Type: Progress Notes Filed: 12/02/2023 13:19 Note Text: Radiology Service Progress Note PATIENT NAME: Jose F Mcintyre DATE OF SERVICE: December 02, 2023 TIME: 1:19 PM PATIENT IDENTITY VERIFICATION COMPLETED USING TWO (2) IDENTIFIERS: Name and Date of confirmed by patient verbally. FALL SCREENING: Has the patient had 2 falls in the last year or 1 fall with injury or currently using an Ambulatory Assistive Device (Walker, Cane, Wheelchair, Crutches, etc.)? No PATIENT GENDER DATA: Male PATIENT RELEVANT IMPLANT DATA REVIEWED: Yes PATIENT PRESENTS WITH AN IMPLANTABLE OR ATTACHED ASSISTANT ACCOUNTING MANAGER: No RADIOLOGY DEPARTMENT: MR; Exam(s) Completed: Head: IAC/CPA PERIPHERAL IV DATA: Site assessment: Clean,Dry and Intact, Site disposition Discontinued SIGNED BY: RT Gee(R) December 02, 2023 1:19 PM [facility] 12-02-2023 Note HNO ID: [id number] Author: LIVAN THOMAS RN Service: ? Author Type: Registered Nurse Type: Progress Notes Filed: 12/02/2023 12:57 Note Text: Radiology Service Progress Note DATE OF SERVICE: December 02, 2023 TIME: 12:55 PM PATIENT WEIGHT: 265 LBS PATIENT IDENTITY VERIFICATION COMPLETED USING TWO (2) STANDARD IDENTIFIERS: Name and Date of confirmed by patient verbally and Name and Date of confirmed by identification band. FALL SCREENING: Has the patient had 2 falls in the last year or 1 fall with injury or currently using an Ambulatory Assistive Device (Walker, Cane, Wheelchair, Crutches, etc.)? No PATIENT GENDER DATA: Male ALLERGIES: Reviewed and unchanged CONTRAST ALLERGY: No EXAM: MRI - CONTRAST TYPE: GROUP II IV SITE: Ambulatory: A peripheral IV was started in the Right antecubital site with a Angio cath: 22 gauge. and A Saline lock was inserted per protocol IV SITE APPEARANCE: Clean,Dry and Intact SIGNATURE: Livan Thomas RN PATIENT NAME: Jose F Mcintyre DATE: December 02, 2023 TIME: 12:55 PM [facility] 12-02-2023 History of Present illness Narrative Images from the original note were not included. [facility] Section of Audiology Vestibular Test Battery Report Name: Jose F Mcintyre [facility]#: [id number] Date of Service: 12/02/2023 Date of : 1975 Age: [age] year old Referred by: Larissa Galaviz [address] [place] [address] And is a patient of No primary care provider on file. Referred for: Evaluation of the cause of disorder of hearing, tinnitus, or balance. Referral documented: In an order in [facility] Pretest Instructions: All pretest instructions were completed prior to testing: no alcohol, no medication for dizziness/motion sickness, no sedatives (sleep aids, tranquilizers, antihistamines), no eye makeup and only have a light meal prior to testing. Impressions and Recommendations OVERALL IMPRESSIONS: Normal vestibular evaluation. Symmetrical and robust peripheral vestibular responses and normal central vestibular function. Low likelihood of active vestibular system involvement to account for symptoms described below. While today's findings indicate normal vestibular function, cannot rule out possible central source (migraine variant?) as potential sources or contributors to symptoms. Clinical correlation needed. Note, Jose F reported significant symptoms during rotational chair testing and monothermal caloric irrigation responses even with reduced time and cool temperature. These symptoms may occur with higher incidence and intensity in patients with migraine variants (Vitor et al., 2020). The remainder of today's evaluation revealed the following: - Normal low, mid, and high frequency vestibulo-ocular reflex (VOR) function as evident by robust and symmetrical monothermal caloric responses, rotary chair , and video head impulse testing. - Ocular and cervical vestibular evoked myogenic potentials (VEMP) results are not consistent with superior semi-circular canal dehiscence (SSCD), otolith, vestibular nerve, and VEMP pathway involvement in both ears. - There were no clinically significant signs of pathophysiologic nystagmus provoked during gaze stability testing with fixation removed, post-headshake testing, positional testing, and mastoid vibration testing. - There were no subjective or objective indications of Benign Paroxysmal Positional Vertigo (BPPV). - There were no indications of central vestibulo-ocular pathway involvement noted. Normal oculomotor examination. - Normal observation of gait and transfers. - Postural control findings demonstrate normal functional balance with varying sensory information (vestibular, visual and/or somatosensory) observed during the Modified Clinical Test of Sensory Integration on Balance (mCTSIB). No fall reactions observed during eyes open and eyes closed conditions on firm and foam support surfaces. RECOMMENDATIONS: - Continue medical follow up with Larissa Galaviz MD and No primary care provider on file. - Consider re-evaluation as medically indicated. - Consider maintaining a healthy sleep schedule in addition to diet, hydration, and exercise. The results and recommendations were explained to Jose F Mcintyre and he expressed understanding of the information. History Present Illness The following history was obtained by way of Jose F Mcintyre's previous medical record, patient entered questionnaire, and direct patient interview: Jose F Mcintyre presents with vertigo described as true spinning sensation. He will have 5 minutes of clammy sensation and then prickly feeling behind his ears (both ears) and vertigo start, which last for hours in duration. Since symptoms started in 2006 he has had intermittent episodes, but this past year has had 5-6. Symptoms may be triggered with stress. No history of headaches or migraines but he does have photo/phonophobia. He needs to sleep off his symptoms (dark room, fan, Meclizine). Please refer to summary of past medical history section for further details of presenting symptoms, signs and relevant past medical history. Symptom Ratin/10 today (0 = no symptoms, 10 = severe symptoms). SUMMARY OF PAST MEDICAL HISTORY: - He has no past medical history on file. - Referring provider Larissa Galaviz MD: vertigo since 2006. Tingling sensations in ears followed by cold sweat and flushing sensation then room spinning. Hours to days in duration; photo/phonophobia. Denies headaches/migraines. Left sided tinnitus - past VTB but unable to complete calorics due to vertigo - Normal EcochG obtained on this date. - Summary of relevant imaging (directly adapted from report): MRI ordered - Previous audiologic evaluation: hearing WNL AU - Last three days his eyes have felt foggy as if they want to pop out - this occurs when you look to the right and left. He has noticed nystagmus when this is occurring. - Morton better with a steroid shot he received from PCP a few weeks ago. This was when he had an episode. - At times he will not feel right and he is unable to push himself. - No falls or falls with injury this past year. Based on review of the past medical history and chief complaint, the following clinical questions were explored during today's appointment: any signs of peripheral or central vestibular system involvement to account for episodes of vertigo? Plan for today's objective vestibular testing based on these clinical questions: Videonystagmography (VNG), Video Head Impulse Test (VHIT), Rotational Chair, and Vestibular Evoked Myogenic Potentials (VEMPs) Medical History There is no problem list on file for this patient. Medications: Current Outpatient Medications on File Prior to Visit Medication Sig meclizine (ANTIVERT) 25 mg tab Take 25 mg by mouth four times a day as needed. cyproheptadine (PERIACTIN) 4 mg tablet Take 1 tablet by mouth every 12 hours. desvenlafaxine ER (PRISTIQ) 50 mg 24 hr tablet Take 1 tablet by mouth every afternoon. iv contrast (will be provided with radiology test) MRI Brain Inject, intravenously, once for 1 dose.No IV access, insert saline lock prior to beginning of sedation, infusion, injection of imaging exam.Discontinue saline lock post exam. If Pt. has a central line or IVAD, may access for administration according to line specific nursing protocol.Once exam is complete flush line and de-access according to line specific nursing protocol in the MR contrast administration guidelines link No current facility-administered medications on file prior to visit. Current medications with potential vestibular/balance side effects include: see bolded. He only takes Meclizine when needed. Family/Social History No family history on file. Family history of otologic or neurologic disorders: No Physical/Vestibular Evaluation GENERAL: Cognitive Status: Alert, Oriented, and Cooperative EARS: Right ear: Ear canal clear and Eardrum visible Left ear: Ear canal clear and Eardrum visible EYES/OCULOMOTOR: Extra-ocular range of motion (CN III, IV, ): normal. Conjugate eye movements: Yes Smooth pursuit (horizontal and vertical): normal Saccades (horizontal, vertical, oblique): normal Cover uncover test: normal [id number]-[id number] test: normal NECK: Cervical rotation right restrictions: none. Reported pain: none Cervical rotation left restrictions: none. Reported pain: none Cervical extension restrictions: none. Reported pain: none Cervical flexion restrictions: none. Reported pain: none VESTIBULAR: Head impulses of semi-circular canals: normal Ocular counter roll: normal GAIT AND BALANCE: Observation of gait and transfer: normal. Modified Clinical Test of Sensory Interaction on Balance (MCTSIB): normal postural control. Eyes open, firm surface: Fall Reactions: 0 Eyes closed , firm surface: Fall Reactions: 0 Eyes open, foam surface: Fall Reactions: 0 Eyes closed, foam surface: Fall Reactions: 0 (fall reaction on practice trial) OBJECTIVE VESTIBULAR MEASURES: Videonystagmography Examination (VNG): CPT codes: 68097, 70878, 75852, 63720. Description of Procedure: objective assessment of peripheral (e.g., low frequency horizontal canal VOR function), status of compensation, Benign Paroxysmal Positional Vertigo (BPPV), and central vestibulo-ocular pathway (oculomotor examination). Procedure time: 30-45 minutes. Note: The fast component (direction) of all nystagmus is reported from the patient's perspective. Calibration procedure: unremarkable Saccade Performance test (pseudo-random presentation of a laser target; 5 - 50 deg horizontal steps): Latency values: normal Accuracy values: normal Peak Velocity values: normal Reported symptoms: none Pursuit Tracking test (sinusoidal presentation of a laser target; .1-.6 Hz, 10-60 deg/sec): Gain values: normal. Evidence of saccadic pursuit: No. Reported symptoms: none Spontaneous & Gaze-Evoked Nystagmus test: Nystagmus center gaze with fixation: none. Temporal profile: n/a. Saccadic intrusions/oscillations: none. Symptoms: none. Nystagmus center gaze without fixation: none. Temporal profile: n/a. Saccadic intrusions/oscillations: none. Symptoms: none. Nystagmus right gaze with fixation: none.Temporal profile: n/a. Saccadic intrusions/oscillations: none. Symptoms: none. Nystagmus right gaze without fixation: none. Temporal profile: n/a. Saccadic intrusions/oscillations: none. Symptoms: none. Nystagmus left gaze with fixation: none.Temporal profile: n/a. Saccadic intrusions/oscillations: none. Symptoms: none. Nystagmus left gaze without fixation: none. Temporal profile: n/a. Saccadic intrusions/oscillations: none. Symptoms: none. Nystagmus up gaze with fixation: none. Temporal profile: n/a. Saccadic intrusions/oscillations: none. Symptoms: none. Nystagmus up gaze without fixation: none. Temporal profile: n/a. Saccadic intrusions/oscillations: none. Symptoms: none. Nystagmus down gaze with fixation: none. Temporal profile: n/a. Saccadic intrusions/oscillations: none. Symptoms: none. Nystagmus down gaze without fixation: none. Temporal profile: n/a. Saccadic intrusions/oscillations: none. Symptoms: none. Note: remainder of testing completed without fixation unless otherwise specified. Head shaking test: Nystagmus post-horizontal head shake: 2 d/s left-beating. Temporal profile: only three beats. Symptoms: none. Nystagmus post-vertical head shake: none. Temporal profile: n/a. Symptoms: none. Skull vibration-induced nystagmus test (sitting, mastoid vibration right, mastoid vibration left): Nystagmus mastoid vibration right: none. Temporal profile: n/a. Symptoms: none. Nystagmus mastoid vibration left: none. Temporal profile: n/a. Symptoms: none. Vertical Semi-circular Canal BPPV Nystagmus tests: Nystagmus Chapito-Hallpike right ear down position: fine up-beating. Temporal profile: intermittent. Symptoms: whooshing sound in left ear Nystagmus Chapito-Hallpike right ear return to sit position: none. Temporal profile: n/a. Symptoms: none. Nystagmus Reading-Hallpike left ear down position: fine up-beating. Temporal profile: intermittent. Symptoms: none. Nystagmus Reading-Hallpike left ear return to sit position: none. Temporal profile: n/a. Symptoms: none. Horizontal Semi-circular Canal BPPV and Positional Nystagmus tests: Nystagmus head center supine: fine up-beating.Temporal profile: intermittent. Symptoms: none. Nystagmus head (roll) right: fine up-beating. Temporal profile: intermittent. Symptoms: none. Nystagmus head (roll) left: fine up-beating. Temporal profile: intermittent. Symptoms: none. Monothermal cool calorics screening (40 second air irrigations, supine position): Unilateral Weakness (UW%): normal. 10% UW in the right ear. Fixation Suppression Index (FI%): normal. (Note: normal FI% < 0.6) Nystagmus pre-caloric position (10 sec screening): none. Vestibular Evoked Myogenic Potentials (VEMP): CPT code: 53073 Description of Procedure: short-latency myogenic potentials produced with sound or vibration originating from otolith organs (saccule and utricle). Cervical (cVEMPs) are recorded from the sternocleidomastoid muscles (patient in a semi-reclined position, head lifted and rotated away from ear stimulated): Ocular (oVEMPs) recorded from the inferior oblique extra-muscles (patient seated with 30 deg upward gaze). Screening for SSCD (superior semi-circular canal dehiscence) conducted if medically warranted. Procedure time: 30 minutes. Note: Integrity of the auditory stimulus, electrode placement and muscle contraction were verified. Otoscopy performed prior to testing confirming unoccluded canals. Amplitude and latency values represent best responses if more than 1 waveform is obtained. Refer to scanned documents for VEMP waveform details. Cervical (cVEMP): normal. Results are not consistent with saccule, inferior vestibular nerve, and/or cVEMP pathway involvement in both ears. Right ear: testing obtained with bone conduction, amplitude and latencies normal; SSCD screen: not tested Left ear: testing obtained with bone conduction, amplitude and latencies: normal; SSCD screen: not tested Interaural amplitude difference cVEMP (abnormal > 30%): 19% (RE-LE/RE+LE)100 - normal Waveforms were scaled according to the average EMG values obtained throughout testing: Yes Ocular (oVEMP): normal. Results are not consistent with utricle, superior vestibular nerve, and/or oVEMP pathway involvement in both ears. Right ear: testing obtained with bone conduction, amplitude and latencies: normal; SSCD screen: not tested Left ear: testing obtained with bone conduction, amplitude and latencies: normal; SSCD screen: not tested Interaural amplitude difference oVEMP (abnormal > 40%): 13% (RE-LE/RE+LE)100 - normal Video Head Impulse Test (VHIT): CPT code: 84269 Description of Procedure: assessment of the angular vestibulo-ocular reflex (VOR) of all six semicircular canals. During vHIT, patients wear infrared goggles and their head is quickly moved in the plane of each semicircular canal. Measurements of VOR gain and corrective saccades are used to determine semicircular canal paresis. Procedure time: 20 minutes. Refer to scanned documents for details for vHIT raw data. Calibration procedure: unremarkable. Camera placement over the left eye. Lateral Canal VHIT: Normal. Results are not consistent with lateral semicircular canal/VOR pathway involvement in both ears. (Note: abnormal gain < 0.80) Vertical Canal VHIT: Normal. Results are not consistent with anterior and posterior semicircular canal/VOR pathway involvement in both ears. (Note: abnormal gain < 0.70) Rotational Chair: CPT code 24964 Description of Procedure: objective assessment of peripheral vestibular system function, in particular bilateral peripheral function (lateral canal VOR function in low-mid frequencies). Procedure time: 20 minutes. Calibration procedure: unremarkable. Sinusoidal Harmonic Acceleration (SHA) testing (at 0.02, 0.04, 0.08, and 0.32 Hz): Gain values: Normal Phase values: Normal (note, slight phase lag at 0.32 Hz likely due to technical error). Symmetry values: Normal Suppression of vestibulo-ocular reflex with visual input: normal. It was my pleasure to evaluate Jose F Mcintyre. If you have any questions regarding this information, please contact me at [phone]. Radha Chambers, PhD CCC-A Section Head, Audiology Vestibular Leak Inspector copy to: Renzo Galaviz MD documented in this encounter [facility] [place] 12-02-2023 Note HNO ID: [id number] Author: RADHA CHAMBERS, PhD Service: ? Author Type: Leak Inspector Type: Progress Notes Filed: 12/02/2023 11:43 Note Text: [facility] Section of Audiology Vestibular Test Battery Report Name: Jose F Mcintyre CC#: [id number] Date of Service: 12/02/2023 Date of : 1975 Age: [age] year old Referred by: Larissa Galaviz [address] [place] [address] And is a patient of No primary care provider on file. Referred for: Evaluation of the cause of disorder of hearing, tinnitus, or balance. Referral documented: In an order in [employer] Pretest Instructions: All pretest instructions were completed prior to testing: no alcohol, no medication for dizziness/motion sickness, no sedatives (sleep aids, tranquilizers, antihistamines), no eye makeup and only have a light meal prior to testing. Impressions and Recommendations OVERALL IMPRESSIONS: Normal vestibular evaluation. Symmetrical and robust peripheral vestibular responses and normal central vestibular function. Low likelihood of active vestibular system involvement to account for symptoms described below. While today's findings indicate normal vestibular function, cannot rule out possible central source (migraine variant?) as potential sources or contributors to symptoms. Clinical correlation needed. Note, Jose F reported significant symptoms during rotational chair testing and monothermal caloric irrigation responses even with reduced time and cool temperature. These symptoms may occur with higher incidence and intensity in patients with migraine variants(Vitor et al., 202). The remainder of today's evaluation revealed the following: - Normal low, mid, and high frequency vestibulo-ocular reflex (VOR) function as evident by robust and symmetrical monothermal caloric responses, rotary chair , and video head impulse testing. - Ocular and cervical vestibular evoked myogenic potentials (VEMP) results are not consistent with superior semi-circular canal dehiscence (SSCD), otolith, vestibular nerve, and VEMP pathway involvement in both ears. - There were no clinically significant signs of pathophysiologic nystagmus provoked during gaze stability testing with fixation removed, post-headshake testing, positional testing, and mastoid vibration testing. - There were no subjective or objective indications of Benign Paroxysmal Positional Vertigo (BPPV). - There were no indications of central vestibulo-ocular pathway involvement noted. Normal oculomotor examination. - Normal observation of gait and transfers. - Postural control findings demonstrate normal functional balance with varying sensory information (vestibular, visual and/or somatosensory) observed during the Modified Clinical Test of Sensory Integration on Balance (mCTSIB). No fall reactions observed during eyes open and eyes closed conditions on firm and foam support surfaces. RECOMMENDATIONS: - Continue medical follow up with Larissa Galaviz MD and No primary care provider on file. - Consider re-evaluation as medically indicated. - Consider maintaining a healthy sleep schedule in addition to diet, hydration, and exercise. The results and recommendations were explained to Jose F Mcintyre and he expressed understanding of the information. History Present Illness The following history was obtained by way of Jose F Mcintyre's previous medical record, patient entered questionnaire, and direct patient interview: Jose F Mcintyre presents with vertigo described as true spinning sensation. He will have 5 minutes of clammy sensation and then prickly feeling behind his ears (both ears) and vertigo start, which last for hours in duration. Since symptoms started in 2006 he has had intermittent episodes, but this past year has had 5-6. Symptoms may be triggered with stress. No history of headaches or migraines but he does have photo/phonophobia. He needs to sleep off his symptoms (dark room, fan, Meclizine). Please refer to summary of past medical history section for further details of presenting symptoms, signs and relevant past medical history. Symptom Ratin/10 today (0 = no symptoms, 10 = severe symptoms). SUMMARY OF PAST MEDICAL HISTORY: - He has no past medical history on file. - Referring provider Larissa Galaviz MD: vertigo since 2006. Tingling sensations in ears followed by cold sweat and flushing sensation then room spinning. Hours to days in duration; photo/phonophobia. Denies headaches/migraines. Left sided tinnitus - past VTB but unable to complete calorics due to vertigo - Normal EcochG obtained on this date. - Summary of relevant imaging (directly adapted from report): MRI ordered - Previous audiologic evaluation: hearing WNL AU - Last three days his eyes have felt foggy as if they want to pop out - this occurs when you look to the right and left. He has noticed nystagmus when th (more content not included)... [facility] 12-02-2023 History of Present illness Narrative Images from the original note were not included. [facility] Electrocochleography (EcochG) Name: Jose F Mcintyre CC#: [id number] Date of Service: 12/02/2023 Date of : 1975 Age: [age] year old Referred by: Larissa Galaviz MD [address] [place] [address] Referred for: Evaluation to detect elevated inner ear pressure. Referral documented: In an order in [facility] Impressions and Recommendations OVERALL IMPRESSIONS: Normal electrocochleography (EcochG) examination in both ears. There is no electrophysiologic evidence of increased labyrinthine pressure in either ear. RECOMMENDATIONS: * Continue medical follow-up with Larissa Galaviz MD as scheduled today. * Continue with Vestibular Test Battery with Radha Chambers, PhD as scheduled today. * Re-evaluation as medically indicated. Note: The results and recommendations were explained to Jose F Mcintyre expressed understanding of the information. Electrocochleography (EcochG) Results SUMMARY OF PAST MEDICAL HISTORY: Encounter with Larissa Galaviz MD, on 09/26/23 Reported vertigo episodes that started in 2006 with a tingling sensation in the ears followed by a cold sweat and flushing sensation, with room spinning vertigo. These episodes would last from hours to days. He reported a high-pitched tinnitus as well as a low pitched pulsatile whooshing sound, left ear greater. He has been treated in the past using meclizine and steroids, both oral and intramuscular. Recommended imaging, vestibular test battery, and electrocochleography testing. Encounter with Gildardo Kendall on 09/26/23 Seen for initial audiologic evaluation due to complaints of recurrent episodes of vertigo lasting several hours, left pulsatile tinnitus in addition to constant ringing tinnitus bilaterally. HISTORY OF PRESENT ILLNESS - DIRECT PATIENT INTERVIEW Chief Complaint: Jose F Mcintyre is a 47 year old male who presents with episodic dizziness described as though the room is spinning. Symptoms initially began in 2006. He reported that the number of episodes he experiences can vary and stated he had about 4-5 episodes within the last year. Episodes last for hours up to 2 days in duration and are spontaneous in nature. Mr. Mcintyre reported that his body will give him a 'warning' when an episode is about to occur, as he will feel tingling in his ears and get clammy. He denied any changes in hearing or tinnitus during the episodes, but he does have tinnitus at baseline. Additionally, he will experience occasional pulsatile tinnitus in both ears that precede dizziness, photophobia, and sensation of his eyelids fluttering. He denied history of headaches/migraines. He has been treated by his local physicans with oral and intramuscular steroid injections and meclizine as needed. Of note, Mr. Mcintyre reported he previously attended vestibular PT in 2008 without relief. Previous audiometric testing completed on 09/26/2023 indicated hearing sensitivity within normal limits in both ears. OBJECTIVE CLINICAL ASSESSMENT RESULTS Otoscopic Examination: Right ear: Ear canal clear, Eardrum visible, Landmarks noted Left ear: Ear canal clear, Eardrum visible, Landmarks noted Tympanometry: Description of procedure: This test is an objective evaluation of middle ear function. CPT code: 31974 Right ear: Normal middle ear pressure and mobility. Left ear: Normal middle ear pressure and mobility. Right Left Canal Volume (ml) 2.1 2.01 Peak Pressure (daPa) -7 -51 Peak Amplitude (ml) 0.59 0.37 Tympanogram Width (daPa) 54 26 EcochG: The EcochG is an auditory evoked potential method for recording electrical potentials of the cochlea to detect elevated inner ear pressure. Electrodes are placed on the forehead (vertex-nontest mastoid; ground-low forehead) and, using a tymptrode, on the test eardrum. The summating potential (SP) and the action potential (AP) are identified. The SP/AP ratio is calculated and reported as within normal limits (<0.35) or abnormal (>0.35) suggesting evidence of increased labyrinthine pressure. An RadioFrame Evoked Potential unit was used to obtain EcochG responses. Procedure time: 30-40 minutes. CPT code: 92557. RIGHT EAR SP Amplitude AP Amplitude SP/AP ratio Status GRAND AVERAGE 0.199 uV 0.752 uV 0.264 Normal Tracing 1 0.159 uV 0.499 uV 0.319 Normal Tracing 2 0.195 uV 0.814 uV 0.239 Normal Tracing 3 0.270 uV 1.006 uV 0.268 Normal LEFT EAR SP Amplitude AP Amplitude SP/AP ratio Status GRAND AVERAGE 0.161 uV 0.738 uV 0.218 Normal Tracing 1 0.202 uV 0.654 uV 0.310 Normal Tracing 2 0.259 uV 0.879 uV 0.294 Normal Tracing 3 0.361 uV 0.711 uV 0.507 Abnormal Tracing 4 0.274 uV 0.787 uV 0.347 Normal It was my pleasure to evaluate Jose F Mcintyre. If you have any questions regarding this information, please contact me at [phone]. Jack Carter. Doctor of Audiology ([place]) Mds Nurse I verify that I have reviewed the history, test results, and interpretation for this patient. Leeanne Kang, [facility] Clinical Leak Inspector documented in this encounter [facility] 12-02-2023 Note HNO ID: [id number] Author: CHRISTINA NGO AUD Service: ? Author Type: Leak Inspector Type: Progress Notes Filed: 12/02/2023 13:41 Note Text: [facility] and Neck Department Electrocochleography (EcochG) Name: Jose F Mcintyre CC#: [id number] Date of Service: 12/02/2023 Date of : 1975 Age: [age] year old Referred by: Larissa Galaviz MD [address] [place] [address] Referred for: Evaluation to detect elevated inner ear pressure. Referral documented: In an order in [facility] Impressions and Recommendations OVERALL IMPRESSIONS: Normal electrocochleography (EcochG) examination in both ears. There is no electrophysiologic evidence of increased labyrinthine pressure in either ear. RECOMMENDATIONS: * Continue medical follow-up with Larissa Galaviz MD as scheduled today. * Continue with Vestibular Test Battery with Radha Chambers, PhD as scheduled today. * Re-evaluation as medically indicated. Note: The results and recommendations were explained to Jose F Mcintyre expressed understanding of the information. Electrocochleography (EcochG) Results SUMMARY OF PAST MEDICAL HISTORY: Encounter with Larissa Galaviz MD, on 09/26/23 Reported vertigo episodes that started in 2006 with a tingling sensation in the ears followed by a cold sweat and flushing sensation, with room spinning vertigo. These episodes would last from hours to days. He reported a high-pitched tinnitus as well as a low pitched pulsatile whooshing sound, left ear greater. He has been treated in the past using meclizine and steroids, both oral and intramuscular. Recommended imaging, vestibular test battery, and electrocochleography testing. Encounter with Gildardo Kendall on 09/26/23 Seen for initial audiologic evaluation due to complaints of recurrent episodes of vertigo lasting several hours, left pulsatile tinnitus in addition to constant ringing tinnitus bilaterally. HISTORY OF PRESENT ILLNESS - DIRECT PATIENT INTERVIEW Chief Complaint: Jose F Mcintyre is a 47 year old male who presents with episodic dizziness described as though the room is spinning. Symptoms initially began in 2006. He reported that the number of episodes he experiences can vary and stated he had about 4-5 episodes within the last year. Episodes last for hours up to 2 days in duration and are spontaneous in nature. Mr. Mcintyre reported that his body will give him a 'warning' when an episode is about to occur, as he will feel tingling in his ears and get clammy. He denied any changes in hearing or tinnitus during the episodes, but he does have tinnitus at baseline. Additionally, he will experience occasional pulsatile tinnitus in both ears that precede dizziness, photophobia, and sensation of his eyelids fluttering. He denied history of headaches/migraines. He has been treated by his local physicans with oral and intramuscular steroid injections and meclizine as needed. Of note, Mr. Mcintyre reported he previously attended vestibular PT in 2008 without relief. Previous audiometric testing completed on 09/26/2023 indicated hearing sensitivity within normal limits in both ears. OBJECTIVE CLINICAL ASSESSMENT RESULTS Otoscopic Examination: Right ear: Ear canal clear, Eardrum visible, Landmarks noted Left ear: Ear canal clear, Eardrum visible, Landmarks noted Tympanometry: Description of procedure: This test is an objective evaluation of middle ear function. CPT code: 96640 Right ear: Normal middle ear pressure and mobility. Left ear: Normal middle ear pressure and mobility. Right Left Canal Volume (ml) 2.1 2.01 Peak Pressure (daPa) -7 -51 Peak Amplitude (ml) 0.59 0.37 Tympanogram Width (daPa) 54 26 EcochG: The EcochG is an auditory evoked potential method for recording electrical potentials of the cochlea to detect elevated inner ear pressure. Electrodes are placed on the forehead (vertex-nontest mastoid; ground-low forehead) and, using a tymptrode, on the test eardrum. The summating potential (SP) and the action potential (AP) are identified. The SP/AP ratio is calculated and reported as within normal limits (<0.35) or abnormal (>0.35) suggesting evidence of increased labyrinthine pressure. An RadioFrame Evoked Potential unit was used to obtain EcochG responses. Procedure time: 30-40 minutes. CPT code: 08566. RIGHT EAR SP Amplitude AP Amplitude SP/AP ratio Status GRAND AVERAGE 0.199 uV 0.752 uV 0.264 Normal Tracing 1 0.159 uV 0.499 uV 0.319 Normal Tracing 2 0.195 uV 0.814 uV 0.239 Normal Tracing 3 0.270 uV 1.006 uV 0.268 Normal LEFT EAR SP Amplitude AP Amplitude SP/AP ratio Status GRAND AVERAGE 0.161 uV 0.738 uV 0.218 Normal Tracing 1 0.202 uV 0.654 uV 0.310 Normal Tracing 2 0.259 uV 0.879 uV 0.294 Normal Tracing 3 0.361 uV 0.711 uV 0.507 Abnormal Tracing 4 0.274 uV 0.787 uV 0.347 Normal It was my pleasure to evaluate Jose F Mcintyre. If you have any questions rega (more content not included)... [facility] 09-30-2023 Miscellaneous Notes Called and spoke with [facility]. Provided clarification with read back for valium q8hr prn. Nothing further needed. Images from the original note were not included. Larissa Galaviz MD Otol Ear Phone Pool 17 minutes ago (3:15 PM) MB Q 8hr PRN Daily prn? Every 8 hr prn? Person Calling:Pharmacy Reason for Call: calling for frequency on diazePAM (VALIUM) 5 mg tablet. Pt Phone #: [phone] Pharmacy Name and # : [facility] [phone] Pt last seen: 09/26/2023 Alana MEJIA documented in this encounter [facility] 09-26-2023 Note HNO ID: [id number] Author: LARISSA GALAVIZ MD Service: ? Author Type: Physician Type: Progress Notes Filed: 09/26/2023 11:43 Note Text: SECTION OF OTOLOGY, NEUROTOLOGY AND LATERAL SKULL BASE SURGERY [facility] and [facility] [place], [facility] History History of Present Illness: Jose F Mcintyre is a 47 year old male who presents complaining of vertigo. Started in 2006. Episodes start with a tingling sensation in the ears followed by cold sweat and flushing sensation then room spinning vertigo. Episodes last for hours to days. During the episodes he has photophobia without photophobia. He denies any headaches/migraines, hearing loss, ear pain, ear fullness, or otorrhea. No prior otologic surgery. He does have high-pitched tinnitus as well as a low pitched pulsatile whooshing sound, especially on the left side. He has been treated extensively by his local physicians with oral and intramuscular steroid injections and meclizine as needed. The steroids help somewhat but then the episodes return after the course is completed. Meclizine has helped in the past. He did have vestibular testing locally several years ago but was unable to complete the test due to vertigo induced by calorics. He has not had any vestibular physical therapy. Reportedly has had prior CT brain and MRI brain scans that were normal. Images are unavailable for review. No past medical history on file. No past surgical history on file. Current Outpatient Medications on File Prior to Visit Medication Sig meclizine (ANTIVERT) 25 mg tab Take 25 mg by mouth four times a day as needed. cyproheptadine (PERIACTIN) 4 mg tablet Take 1 tablet by mouth every 12 hours. desvenlafaxine ER (PRISTIQ) 50 mg 24 hr tablet Take 1 tablet by mouth every afternoon. meclizine (ANTIVERT) 25 mg tab 1 tablet as needed Orally QID No current facility-administered medications on file prior to visit. ALLERGIES Allergen Reactions Ciprofloxacin Other: See Comments Cold sweets, dizziness Prednisone Other: See Comments Numbness, tingling-fingers, anxiety Vicodin [Hydrocodon* Intolerance Dizziness, sweats, numbness in legs No family history on file. Physical Exam Patient is alert, oriented Head examination: normocephalic Binocular microscopic examination of ears: Right ear: Pinna: normal External canal : patent Tympanic membrane:normal Left ear: Pinna: normal External canal: patent Tympanic membrane: normal Vestibular examination: Romberg Stable Sharpened Romberg Falls to the right Fukuda stepping test turns to the right Nystagmus: none Reading and Hallpike maneuver: not tested Walking: normal CN VII: Face is symmetric with normal eye closure and smile. Test Results Audiogram AND Tympanogram (personally reviewed) Tympanometry Vestibular testing Imaging (personally reviewed) Assessment and Plan Jose F Ames history, physical examination, and diagnostic studies are consistent with the following diagnoses and associated treatment plan of care. Vertigo - MRI BRAIN WO/W IVCON; Future - iv contrast (will be provided with radiology test); MRI Brain Inject, intravenously, once for 1 dose.No IV access, insert saline lock prior to beginning of sedation, infusion, injection of imaging exam.Discontinue saline lock post exam. If Pt. has a central line or IVAD, may access for administration according to line specific nursing protocol.Once exam is complete flush line and de-access according to line specific nursing protocol in the MR contrast administration guidelines link - VESTIBULAR TEST BATTERY; Future - diazePAM (VALIUM) 5 mg tablet; Take 1 tablet by mouth as needed (vertigo) for up to 30 days. - ECOCHG (ELECTROCOCHLEOGRAPHY); Future Other orders - meclizine (ANTIVERT) 25 mg tab; Take 25 mg by mouth four times a day as needed. - cyproheptadine (PERIACTIN) 4 mg tablet; Take 1 tablet by mouth every 12 hours. - desvenlafaxine ER (PRISTIQ) 50 mg 24 hr tablet; Take 1 tablet by mouth every afternoon. Complex history of severe vertigo episodes lasting hours to days. No ear symptoms or headaches. Differential at this point includes isolated vestibular hydrops vs vestibular migraines without headache. -MRI IAC to rule out tumor or other central source -vestibular test battery -electrocochleography -low salt and low caffeine diet -follow up after testing complete I have answered all of his questions. Bal Cole MD for the service of Larissa Galaviz MD I performed a history, reviewed otero exam findings and diagnostic studies, and discussed management plan with the resident. I reviewed the resident's note and agree with the documented findings and plan of care. Signed by: Larissa Galaviz MD, FACS Section Head, Otology-Neurotology Awning Hanger Supervisor, Hearing Implant Program [facility] Medical Decision Making: Problems: Moderate: New problem with uncerta (more content not included)... [facility] 09-26-2023 History of Present illness Narrative Images from the original note were not included. SECTION OF OTOLOGY, NEUROTOLOGY AND LATERAL SKULL BASE SURGERY Head and [facility] [place], [facility] History History of Present Illness: Jose F Mcintyre is a 47 year old male who presents complaining of vertigo. Started in 2006. Episodes start with a tingling sensation in the ears followed by cold sweat and flushing sensation then room spinning vertigo. Episodes last for hours to days. During the episodes he has photophobia without photophobia. He denies any headaches/migraines, hearing loss, ear pain, ear fullness, or otorrhea. No prior otologic surgery. He does have high-pitched tinnitus as well as a low pitched pulsatile whooshing sound, especially on the left side. He has been treated extensively by his local physicians with oral and intramuscular steroid injections and meclizine as needed. The steroids help somewhat but then the episodes return after the course is completed. Meclizine has helped in the past. He did have vestibular testing locally several years ago but was unable to complete the test due to vertigo induced by calorics. He has not had any vestibular physical therapy. Reportedly has had prior CT brain and MRI brain scans that were normal. Images are unavailable for review. No past medical history on file. No past surgical history on file. Current Outpatient Medications on File Prior to Visit Medication Sig meclizine (ANTIVERT) 25 mg tab Take 25 mg by mouth four times a day as needed. cyproheptadine (PERIACTIN) 4 mg tablet Take 1 tablet by mouth every 12 hours. desvenlafaxine ER (PRISTIQ) 50 mg 24 hr tablet Take 1 tablet by mouth every afternoon. meclizine (ANTIVERT) 25 mg tab 1 tablet as needed Orally QID No current facility-administered medications on file prior to visit. ALLERGIES Allergen Reactions Ciprofloxacin Other: See Comments Cold sweets, dizziness Prednisone Other: See Comments Numbness, tingling-fingers, anxiety Vicodin [Hydrocodon* Intolerance Dizziness, sweats, numbness in legs No family history on file. Physical Exam Patient is alert, oriented Head examination: normocephalic Binocular microscopic examination of ears: Right ear: Pinna: normal External canal : patent Tympanic membrane:normal Left ear: Pinna: normal External canal: patent Tympanic membrane: normal Vestibular examination: Romberg Stable Sharpened Romberg Falls to the right Fukuda stepping test turns to the right Nystagmus: none Reading and Hallpike maneuver: not tested Walking: normal CN VII: Face is symmetric with normal eye closure and smile. Test Results Audiogram & Tympanogram (personally reviewed) Tympanometry Vestibular testing Imaging (personally reviewed) Assessment and Plan Jose F Mcintyre's history, physical examination, and diagnostic studies are consistent with the following diagnoses and associated treatment plan of care. Vertigo - MRI BRAIN WO/W IVCON; Future - iv contrast (will be provided with radiology test); MRI Brain Inject, intravenously, once for 1 dose.No IV access, insert saline lock prior to beginning of sedation, infusion, injection of imaging exam.Discontinue saline lock post exam. If Pt. has a central line or IVAD, may access for administration according to line specific nursing protocol.Once exam is complete flush line and de-access according to line specific nursing protocol in the MR contrast administration guidelines link - VESTIBULAR TEST BATTERY; Future - diazePAM (VALIUM) 5 mg tablet; Take 1 tablet by mouth as needed (vertigo) for up to 30 days. - ECOCHG (ELECTROCOCHLEOGRAPHY); Future Other orders - meclizine (ANTIVERT) 25 mg tab; Take 25 mg by mouth four times a day as needed. - cyproheptadine (PERIACTIN) 4 mg tablet; Take 1 tablet by mouth every 12 hours. - desvenlafaxine ER (PRISTIQ) 50 mg 24 hr tablet; Take 1 tablet by mouth every afternoon. Complex history of severe vertigo episodes lasting hours to days. No ear symptoms or headaches. Differential at this point includes isolated vestibular hydrops vs vestibular migraines without headache. -MRI IAC to rule out tumor or other central source -vestibular test battery -electrocochleography -low salt and low caffeine diet -follow up after testing complete I have answered all of his questions. Bal Cole MD for the service of Larissa Galaviz MD I performed a history, reviewed otero exam findings and diagnostic studies, and discussed management plan with the resident. I reviewed the resident's note and agree with the documented findings and plan of care. Signed by: Larissa Galaviz MD, FACS Section Head, Otology-Neurotology Awning Hanger Supervisor, Hearing Implant Program [facility] Medical Decision Making: Problems: Moderate: New problem with uncertain prognosis Data: Unique test result(s) reviewed: 1 Unique test(s) ordered: 3+ Risk: Low: Low risk from testing/treatment Medical Decision Making Level: 4 - Moderate documented in this encounter [facility] 09-26-2023 History of Present illness Narrative [facility] AUDIOLOGIC EVALUATION REPORT Name: Jose F Mcintyre CC#: [id number] Date of Service: 09/26/2023 Date of : 1975 Age: [age] year old Referred by: Larissa Galaviz [address] [address] Referred for: Evaluation of suspected change in hearing, tinnitus, or balance. Referral documented: In an order in [facility] Patient's major complaints: Dizziness/vertigo/imbalance Jose F Mcintyre was seen for an initial audiologic evaluation. - Reported years of recurrent episodes of vertigo lasting several hours - Reported left pulsatile tinnitus in addition to constant ringing tinnitus bilaterally - Denied otalgia, otorrhea, aural fullness, and prior otologic surgery IMPRESSIONS RIGHT EAR: Hearing within normal limits LEFT EAR: Hearing within normal limits AUDIOLOGIC EVALUATION Following is a brief interpretation of the obtained findings from the audiologic evaluation. Refer to the Auditory Test Record for complete audiometric results. The patient was counseled about the test findings and appropriate audiologic recommendations were made. SUMMARY: Audiogram can be viewed under Proc. OTOSCOPY RIGHT EAR: Otoscopic inspection revealed ear canal was clear with an identifiable cone of light. LEFT EAR: Otoscopic inspection revealed ear canal was clear with an identifiable cone of light. TYMPANOMETRY Description of procedure: This test is an objective evaluation of middle ear function. CPT code: 64881 RIGHT EAR: Normal ME function. LEFT EAR: Normal ME function. ACOUSTIC REFLEXES Description of procedure: This test is an objective measure of auditory and facial nerve pathways. CPT code: 52016, 93285 RIGHT EAR PROBE EAR: (ipsi right stimulus ear; contralateral left stimulus ear): Acoustic Reflex Pattern Ipsilateral acoustic reflexes present WNL for 500-2000 Hz. Contralateral acoustic reflexes present WNL for 500-2000 Hz. Acoustic Reflex Decay (left stimulus ear): Did not test. LEFT EAR PROBE EAR: (ipsi left stimulus ear; contralateral right stimulus ear): Acoustic Reflex Pattern Ipsilateral acoustic reflexes present WNL for 500-2000 Hz. Contralateral acoustic reflexes present WNL for 500-2000 Hz. Acoustic Reflex Decay (right stimulus ear):Did not test. PURE TONE AUDIOMETRY AND SPEECH TESTING Description of procedure: This test is an objective evaluation hearing sensitivity via air and bone conduction and speech recognition testing. CPT code: 17396 RIGHT EAR: Hearing Sensitivity: Hearing sensitivity within normal limits. Word Recognition Score: Excellent (100%). WRS is consistent with hearing sensitivity. Words were presented at 60 dB HL is above (greater than or equal to 60 dB HL) intensity level for average conversational speech. The NU-6 Ordered by Difficulty Word List (10 words) was used for testing. LEFT EAR: Hearing Sensitivity: Hearing sensitivity within normal limits. Word Recognition Score: Excellent (100%). WRS is consistent with hearing sensitivity. Words were presented at 60 dB HL is above (greater than or equal to 60 dB HL) intensity level for average conversational speech. The NU-6 Ordered by Difficulty Word List (10 words) was used for testing. RECOMMENDATIONS * Continue medical follow-up with Renzo Galaviz MD. * Re-evaluation as medically indicated. * Return if a change in hearing is noted. Leeanne Kendall, [facility] Clinical Leak Inspector OTERO Abbrev- iation Definition Degree of hearing sensitivity dB range WNL within normal limits WNL 0 - 20 SNHL sensorineural hearing loss Mild 20-40 CHL conductive hearing loss Moderate 40-55 MHL mixed hearing loss Moderately-Severe 55-70 WRS word recognition score Severe 70-90 ME middle ear Profound 90 + TM tympanic membrane documented in this encounter [facility] 09-26-2023 Note HNO ID: [id number] Author: LISA LI AUD Service: ? Author Type: Leak Inspector Type: Progress Notes Filed: 10/25/2023 12:11 Note Text: [facility] [place] AUDIOLOGIC EVALUATION REPORT Name: Jose F Mcintyre [facility]#: [id number] Date of Service: 09/26/2023 Date of : 1975 Age: [age] year old Referred by: Larissa Galaviz [address] [address] Referred for: Evaluation of suspected change in hearing, tinnitus, or balance. Referral documented: In an order in Epic Patient's major complaints: Dizziness/vertigo/imbalance Jose F Mcintyre was seen for an initial audiologic evaluation. - Reported years of recurrent episodes of vertigo lasting several hours - Reported left pulsatile tinnitus in addition to constant ringing tinnitus bilaterally - Denied otalgia, otorrhea, aural fullness, and prior otologic surgery IMPRESSIONS RIGHT EAR: Hearing within normal limits LEFT EAR: Hearing within normal limits AUDIOLOGIC EVALUATION Following is a brief interpretation of the obtained findings from the audiologic evaluation. Refer to the Auditory Test Record for complete audiometric results. The patient was counseled about the test findings and appropriate audiologic recommendations were made. SUMMARY: Audiogram can be viewed under Proc. OTOSCOPY RIGHT EAR: Otoscopic inspection revealed ear canal was clear with an identifiable cone of light. LEFT EAR: Otoscopic inspection revealed ear canal was clear with an identifiable cone of light. TYMPANOMETRY Description of procedure: This test is an objective evaluation of middle ear function. CPT code: 57011 RIGHT EAR: Normal ME function. LEFT EAR: Normal ME function. ACOUSTIC REFLEXES Description of procedure: This test is an objective measure of auditory and facial nerve pathways. CPT code: 97494, 55157 RIGHT EAR PROBE EAR: (ipsi right stimulus ear; contralateral left stimulus ear): Acoustic Reflex Pattern Ipsilateral acoustic reflexes present WNL for 500-2000 Hz. Contralateral acoustic reflexes present WNL for 500-2000 Hz. Acoustic Reflex Decay (left stimulus ear): Did not test. LEFT EAR PROBE EAR: (ipsi left stimulus ear; contralateral right stimulus ear): Acoustic Reflex Pattern Ipsilateral acoustic reflexes present WNL for 500-2000 Hz. Contralateral acoustic reflexes present WNL for 500-2000 Hz. Acoustic Reflex Decay (right stimulus ear):Did not test. PURE TONE AUDIOMETRY AND SPEECH TESTING Description of procedure: This test is an objective evaluation hearing sensitivity via air and bone conduction and speech recognition testing. CPT code: 42480 RIGHT EAR: Hearing Sensitivity: Hearing sensitivity within normal limits. Word Recognition Score: Excellent (100%). WRS is consistent with hearing sensitivity. Words were presented at 60 dB HL is above (greater than or equal to 60 dB HL) intensity level for average conversational speech. The NU-6 Ordered by Difficulty Word List (10 words) was used for testing. LEFT EAR: Hearing Sensitivity: Hearing sensitivity within normal limits. Word Recognition Score: Excellent (100%). WRS is consistent with hearing sensitivity. Words were presented at 60 dB HL is above (greater than or equal to 60 dB HL) intensity level for average conversational speech. The NU-6 Ordered by Difficulty Word List (10 words) was used for testing. RECOMMENDATIONS * Continue medical follow-up with Renzo Galaviz MD. * Re-evaluation as medically indicated. * Return if a change in hearing is noted. Leeanne Kendall, [facility] Clinical Leak Inspector OTERO Abbrev- iation Definition Degree of hearing sensitivity dB range WNL within normal limits WNL 0 - 20 SNHL sensorineural hearing loss Mild 20-40 CHL conductive hearing loss Moderate 40-55 MHL mixed hearing loss Moderately-Severe 55-70 WRS word recognition score Severe 70-90 ME middle ear Profound 90 + TM tympanic membrane [facility] Evaluation note Diagnosis Other specified hearing loss, unspecified ear- Primary [facility] Diagnosis Vertigo- Primary Dizziness and giddiness documented in this [facility] Diagnosis Dizziness- Primary Dizziness and giddiness Tinnitus, bilateral Unspecified [facility]innitus [facility] Vertigo- Primary Dizziness and giddiness Photophobia Visual discomfort [facility] this [facility] Diagnosis Tinnitus, bilateral- Primary Unspecified tinnitus Vertigo Dizziness and giddiness documented in this [facility] Diagnosis Dizziness- Primary Dizziness and giddiness Vestibular migraine documented [facility] Diagnosis Vertigo Dizziness and giddiness documented in this encounter [facility] Summary Purpose Family History No Family History Records FoundNo Family History Records FoundNo Family History Records Found Advance Directives No Advanced Directives Records FoundNo Advanced Directives Records FoundNo Advanced Directives Records Found Reason for Referral Specialty Diagnoses / Procedures Referred By Contac t Referred To Contact Diagnoses Other specified hearing loss, unspecified ear Procedures HEARING TEST/AUDIOGRAM COMPRE AUDIOMETRY THRESHOLD EVAL SP RECOGNIJ Larissa Galaviz MD [address] [place] [address] [facility] [address] [place] [address] Referral ID Status Reason Start Date Expiration Date Visits Requested Visits Authorized [id number] Authorized Auto-Generat ed Referral 08/26/2023 08/26/2024 1 1 Specialty Diagnoses / Procedures Referred By Contac t Referred To Contact MR IMAGING Diagnoses Vertigo Procedures MRI BRAIN WO/W IVCON MRI BRAIN BRAIN STEM W/O W/CONTRAST MATERIAL Larissa Galaviz MD [address] [place] [address] [facility] [place] [address] Referral ID Status Reason Start Date Expiration Date Visits Requested Visits Authorized [id number] Authorized Auto-Generat ed Referral 09/26/2023 10/25/2024 1 1 Referral ID Status Reason Start Date Expiration Date V isits Requested Visits Authorized [id number] Closed Auto-Generate d Referral 09/26/2023 10/25/2024 1 1 Additional Source Comments (unrecognized sect ion and content) No Status Records FoundNo Status Records FoundNo Status Records Found INFORMATION SOURCE (unrecogn ized section and content) DATE CREATED AUTHOR 03/18/2020 [facility] DATE CREATED AUTHOR AUTHOR'S ORGANIZ ATION 11/05/2022 [facility] DATE CREATED AUTHOR AUTHOR'S ORGANIZ ATION 12/25/2023 [facility] Source Comments (unrecognize d section and content) In the event this informatio n is protected by the Federal Confidentiality of Alcohol and Drug Abuse Patient Records regulations: The Federal rules restrict any use of the information to criminally investigate or prosecute any alcohol or drug abuse patient.[facility] the event this information is protected by the Federal Confidentiality of Alcohol and Drug Abuse Patient Records regulations: The Federal rules restrict any use of the information to criminally investigate or prosecute any alcohol or drug abuse patient.[facility] [place] the event this information is protected by the Federal Confidentiality of Alcohol and Drug Abuse Patient Records regulations: The Federal rules restrict any use of the information to criminally investigate or prosecute any alcohol or drug abuse patient.[facility] the event this information is protected by the Federal Confidentiality of Alcohol and Drug Abuse Patient Records regulations: The Federal rules restrict any use of the information to criminally investigate or prosecute any alcohol or drug abuse patient.[facility] the event this information is protected by the Federal Confidentiality of Alcohol and Drug Abuse Patient Records regulations: The Federal rules restrict any use of the information to criminally investigate or prosecute any alcohol or drug abuse patient.[facility] the event this information is protected by the Federal Confidentiality of Alcohol and Drug Abuse Patient Records regulations: The Federal rules restrict any use of the information to criminally investigate or prosecute any alcohol or drug abuse patient.[facility] the event this information is protected by the Federal Confidentiality of Alcohol and Drug Abuse Patient Records regulations: The Federal rules restrict any use of the information to criminally investigate or prosecute any alcohol or drug abuse patient.[facility] the event this information is protected by the Federal Confidentiality of Alcohol and Drug Abuse Patient Records regulations: The Federal rules restrict any use of the information to criminally investigate or prosecute any alcohol or drug abuse patient.[facility] Reason for Visit (unrecogniz ed section and content) Reason Comments New Patient Vertigo Reason Comments Patient Update Reason Comments Dizziness Specialty Diagnoses / Procedures Referred By Contac t Referred To Contact Diagnoses Other specified hearing loss, unspecified ear Procedures HEARING TEST/AUDIOGRAM COMPRE AUDIOMETRY THRESHOLD Larissa Rosario MD [address] [place] [address] [facility] [address] [place] [address] Referral ID Status Reason Start Date Expiration Date V isits Requested Visits Authorized [id number] Closed Auto-Generate d Referral 08/26/2023 08/26/2024 1 1 Reason Comments Follow Up Reason Comments Radiology MRI Specialty Diagnoses / Procedures Referred By Contac t Referred To Contact Radiology / [facility] Diagnoses Dizziness and giddiness Brain Procedures MRI BRAIN BRAIN STEM W/O W/CONTRAST MATERIAL MRI WWO NEU1 B 300 Larissa Galaviz MD [address] [place] [address] [place] [address] [place] [address] Referral ID Status Reason Start Date Expiration Date Visits Re quested Visits Authorized [id number] Closed 11/11/2023 12/25/2023 1 1 FOR RECORDS PERTAINING TO PATIENTS WHO ARE OR HAVE BEEN ENROLLED IN A CHEMICAL DEPENDENCY/SUBSTANCEABUSE PROGRAM, SOME INFORMATION MAY BE OMITTED. This clinical summary was aggregated from multiple sources. Caution should be exercised in using it in the provision of clinical care. This summary normalizes information from multiple sources, and as a consequence, information in this document may materially change the coding, format and clinical context of patient data. In addition, data may be omitted in some cases. CLINICAL DECISIONS SHOULD BE BASED ON THE PRIMARY CLINICAL RECORDS. [email or web address] provides no warranty or guarantee of the accuracy or completeness of information in this document.
[2023-12-28 10:19] LABS: Basophils Absolute Auto 0.1 10^3/uL (0.0-0.1); Basophils Percent Auto 0.9 % (0.2-2.0); Eosinophils Absolute Auto 0.1 10^3/uL (0.0-0.7); Eosinophils Percent Auto 1.7 % (0.9-7.0); Hematocrit 41.9 % (42.0-54.0); Hemoglobin 13.5 g/dL (14.0-18.0); Immature Granulocytes Abs Auto 0.02 10^3/uL (0.00-0.03); Immature Granulocytes Pct Auto 0.3 % (0.0-0.5); Lymphocytes Absolute Auto 2.4 10^3/uL (1.2-3.8); Lymphocytes Percent Auto 34.2 % (20.5-60.0); Mean Corpuscular HGB Conc 32.2 g/dL (29.9-35.2); Mean Corpuscular Hemoglobin 29.7 pg (25.9-34.0); Mean Corpuscular Volume 92.3 fL (80.0-94.0); Mean Platelet Volume 9.6 fL (9.5-13.5); Monocytes Absolute Auto 0.7 10^3/uL (0.3-0.8); Monocytes Percent Auto 9.8 % (1.7-12.0); Neutrophils Absolute Auto 3.8 10^3/uL (1.4-6.5); Neutrophils Percent Auto 53.1 % (43.0-75.0); Platelet Count 206 10^3/uL (150-450); Red Blood Count 4.54 10^6/uL (4.70-6.10); Red Cell Distribution Width 12.5 % (11.0-15.0); White Blood Count 7.1 10^3/uL (4.0-11.0)
[2023-12-28 10:57] LABS: Prostate Specific Antigen Scrn 1.87 ng/mL (<=4.00)
[2023-12-28 11:00] LABS: Estimated Average Glucose 103 mg/dL; Glycohemoglobin A1C 5.2 % (4.5-6.2)
[2023-12-28 11:26] LABS: Alanine Aminotransferase 56 U/L (16-63); Albumin Level 3.7 g/dL (3.4-5.0); Alkaline Phosphatase 54 U/L (46-116); Anion Gap 12.2; Aspartate Amino Transferase 29 U/L (15-37); BUN Creatinine Ratio 14.4; Bilirubin Total 0.5 mg/dL (0.2-1.0); Carbon Dioxide 30.4 mmol/L (21.0-32.0); Chloride 105 mmol/L (98-107); Chol HDL Ratio 4.4; Cholesterol 189 mg/dL (<=200); Estimated GFR (African America >60 (>=60); Estimated GFR (Non-African Ame >60 (>=60); Free T3 2.19 pg/mL (2.18-3.98); Globulin 3.7 g/dL; Glucose 101 mg/dL (74-106); HDL Cholesterol 43 mg/dL (40-60); LDL Cholesterol Calculated 133.4 mg/dL; Potassium 4.6 mmol/L (3.5-5.1); Sodium 143 mmol/L (136-145); Thyroid Stimulating Hormone 1.912 uIU/mL (0.358-3.740); Total Protein 7.4 g/dL (6.4-8.2); Triglycerides 63 mg/dL (<=150); VLDL CHOLESTEROL 12.6 mg/dL
[2023-12-29 13:07] LABS: Insulin 26.5 uIU/mL (2.6-24.9)
== END 2023-12-28 09:54 | disposition home or self-care (01) ==
LOC: LAB 09:56
PROVIDERS: PCP Family Medicine; Visit Provider Family Medicine
DX: Z00.00 Encounter for general adult medical examination without abnormal findings (principal); E78.5 Hyperlipidemia, unspecified; R73.09 Other abnormal glucose; Z12.5 Encounter for screening for malignant neoplasm of prostate; Z12.12 Encounter for screening for malignant neoplasm of rectum
CPT/HCPCS: 36415; 80053; 80061; 83036; 83525; 84436; 84443; 84481; 85025; G0103